=== PATIENT | female | born 1995 | race Caucasian/White ===

== ENCOUNTER → 2017-06-24 | Outpatient (CLI) | payer BC ==
--- NOTE | 2017-06-24 12:19 | Diagnostic Imaging Report ---
INDICATION: Bilateral palpable lumps. Patient reportedly had an outside ultrasound of the right breast demonstrating a fibroadenoma. COMPARISON: No prior imaging is available for comparison. TECHNIQUE: Digital diagnostic mammography was performed bilaterally with a Computer Aided Detection (CAD) system. FINDINGS: Both breasts are radiographically dense, limiting the sensitivity of mammography. There are areas of density at the areas that were marked with BB markers in both breasts. No suspicious calcifications are seen. The axillae are unremarkable. IMPRESSION: Extremely dense breasts limiting sensitivity. Further evaluation of the areas of palpable abnormality in both breasts with ultrasound is recommended. ACR BI-RADS Category 0: Incomplete. (Needs additional imaging evaluation). Result letter will be mailed to the patient. Note: At least 10% of breast cancer is not imaged by mammography. Dictated by: Dictated on workstation # [id number]
--- NOTE | 2017-06-24 12:27 | Diagnostic Imaging Report ---
INDICATION: Bilateral breast nodules. The patient reportedly had an outside right breast ultrasound demonstrating a solid nodule consistent with a fibroadenoma. TECHNIQUE: Sonographic interrogation of the bilateral breasts was performed. FINDINGS: The left breast does demonstrate a well-defined hypoechoic solid nodule at the 10 o'clock location 4 cm from the nipple. This measures 1.4 x 0.8 x 1.6 cm and appears to be macrolobulated showing some posterior acoustic enhancement, most suggestive of a fibroadenoma. There is internal vascularity. On the right, there is a well-defined hypoechoic solid mass at the 5 o'clock location 4 cm from the nipple measuring 2.3 x 0.9 x 1.8 cm. This demonstrates internal vascularity and also is consistent with a fibroadenoma. The outside ultrasound report described this mass with measurements of 2.1 x 1.0 x 1.8 cm. IMPRESSION: Bilateral solid circumscribed masses as described. These are most suggestive of fibroadenomas. A followup bilateral breast ultrasound in 6 months could be performed to confirm stability. Dictated by: Dictated on workstation # [id number]
== END ==
LOC: RAD 08:28
PROVIDERS: ATTEND Obstetrics & Gynecology
DX: N63.14 Unspecified lump in the right breast, lower inner quadrant (principal); N63.22 Unspecified lump in the left breast, upper inner quadrant
CPT/HCPCS: 76642; 77066

== ENCOUNTER 2017-07-03 05:52 | Outpatient (CLI) | payer BC ==
[~2017-07-03] VITALS: Ht 160 cm; Wt 56.7 kg
[2017-07-03] MEDS ORDERED: BCP PO (11:15)
[2017-07-03] MEDS ORDERED: MULT-35 PO (11:15)
== END 2017-07-03 11:50 ==
LOC: PREOP 05:52
PROVIDERS: ATTEND Surgery
DX: Z01.818 Encounter for other preprocedural examination (principal); N63.10 Unspecified lump in the right breast, unspecified quadrant; N63.20 Unspecified lump in the left breast, unspecified quadrant

== ENCOUNTER 2017-07-05 07:25 | Day surgery (SDC) | payer BC ==
[~2017-07-05] VITALS: Ht 160 cm; Wt 56.7 kg
[~2017-07-05 07:25] MED LIST: BCP PO; MULT-35 PO
--- OUTSIDE RECORDS SUMMARY | 2017-07-05 07:30 | XMS REPORT ---
Author Roseanna Wallace Organization [facility] Address [address] [place], [place] [id number] Care Team Providers Care Food Aide Name Role Phone Roseanna Cuevas PCP Unavailable Allergies and Adverse Reactions Name Reaction Notes NO KNOWN DRUG ALLERGIES Plan of Treatment Planned Activity Comments Planned Date Planned Time Plan/Goal X-RAY EXAM TRUNK SPINE STAND 09/01/2012 12:00 AM Medications Active Name Start Date Estimated Completion Date SIG Comments ibuprofen oral tablet 800 mg 11/26/2014 12/26/2014 take 1 tablet by oral route 3 times a day as needed for 30 days Sprintec (28) oral tablet 0.25-35 mg-mcg 11/26/2014 03/18/2015 take 1 tablet by oral route once daily for 28 days Zofran ODT 4 mg oral tablet,disintegrating 12/17/2014 dissolve 1-2 tablets by oral route every 8 hours as needed Name Start Date Expiration Date SIG Comments naproxen Oral tablet,delayed release (DR/EC) 500 mg 08/28/2012 09/27/2012 take 1 tablet by oral route 2 times a day for 30 days valacyclovir oral tablet 1 g 08/27/2013 09/03/2013 take 1 tablet (1,000 mg) by oral route 3 times per day for 7 days Depo-Provera intramuscular suspension 150 mg/mL 09/16/2013 09/20/2013 inject 1 milliliter (150 mg) by intramuscular route every 3 months for 1 day Ultram ER oral tablet extended release 24 hr 100 mg 11/26/2014 11/29/2014 take 1 tablet (100 mg) by oral route once daily for 3 days Discontinued Name Start Date Discontinued Date SIG Comments Bactroban topical ointment 2 % 04/01/2013 04/09/2013 apply a small amount to the affected area by topical route 3 times per day prednisone oral tablet 20 mg 07/03/2013 09/15/2013 take 40mg x2 days then 20mg x3 days. cyclobenzaprine oral tablet 10 mg 07/03/2013 09/15/2013 take 1 tablet by mouth daily at HS triamcinolone acetonide topical cream 0.1 % 08/12/2013 09/15/2013 apply a thin layer to the affected area(s) by topical route 2 times per day acyclovir oral tablet 400 mg 09/21/2013 12/02/2013 take 1 tablet (400 mg) by oral route 2 times per day for 30 days Problem List Description Status Onset Biliary Dyskinesia Active 12/22/2014 Vital Signs Date Time BP-Sys(mm[Hg] BP-Maria De Jesus(mm[Hg]) HR(bpm) RR(rpm) Temp WT HT HC BMI BSA BMI Percentile O2 Sat(%) 12/22/2014 11:50:00 AM 106 mmHg 69 mmHg 78 bpm 16 rpm 97.4 F 118 lbs 62 in 21.58 kg/m2 1.53 m2 0 % 11/26/2014 9:51:00 AM 122 mmHg 72 mmHg 75 bpm 98.6 F 121 lbs 62.5 in 21.7783 kg/m 1.5557 m 0 % 09/21/2014 4:13:00 PM 100 mmHg 65 mmHg 84 bpm 16 rpm 98 F 116 lbs 98 % 02/22/2014 4:42:00 PM 111 mmHg 75 mmHg 95 bpm 97.4 F 118.125 lbs 62.5 in 21.2608 kg/m 1.5371 m 45.7 % 12/02/2013 4:27:00 PM 112 mmHg 67 mmHg 83 bpm 97.8 F 116 lbs 62.5 in 20.88 kg/m2 1.52 m2 41.2 % 09/22/2013 8:31:00 AM 118 mmHg 62 mmHg 101 bpm 18 rpm 97.6 F 113.25 lbs 62.5 in 20.3834 kg/m 1.5051 m 34.9 % 99 % 09/15/2013 4:35:00 PM 107 mmHg 67 mmHg 85 bpm 98 F 115 lbs 62.5 in 20.70 kg/m2 1.52 m2 39.4 % 07/03/2013 10:55:00 AM 115 mmHg 70 mmHg 85 bpm 16 rpm 98.8 F 112.25 lbs 62.5 in 20.2034 kg/m 1.4984 m 33.1 % 99 % 06/29/2013 4:44:00 PM 109 mmHg 70 mmHg 85 bpm 98.6 F 111.25 lbs 62.5 in 20.02 kg/m2 1.49 m2 30.7 % 04/09/2013 2:49:00 PM 104 mmHg 70 mmHg 82 bpm 97.4 F 108.5 lbs 62.5 in 19.5285 kg/m 1.4732 m 24.6 % 04/01/2013 3:14:00 PM 118 mmHg 68 mmHg 84 bpm 18 rpm 98.4 F 108.25 lbs 62.5 in 19.48 kg/m2 1.47 m2 24.1 % 99 % 01/22/2013 2:45:00 PM 123 mmHg 87 mmHg 91 bpm 98.3 F 99.5 lbs 62.5 in 17.9086 kg/m 1.4108 m 6.5 % 10/27/2012 3:00:00 PM 110 mmHg 65 mmHg 76 bpm 98.6 F 96.375 lbs 62.5 in 17.35 kg/m2 1.39 m2 2.2 % 08/18/2012 11:29:00 AM 122 mmHg 62 mmHg 64 bpm 18 rpm 97.3 F 98.375 lbs 62.5 in 17.7061 kg/m 1.4028 m 5.8 % 08/12/2012 9:36:00 AM 116 mmHg 60 mmHg 62 bpm 18 rpm 97.5 F 97.375 lbs 62.5 in 17.53 kg/m2 1.40 m2 4.3 % 08/11/2012 9:12:00 AM 108 mmHg 68 mmHg 83 bpm 98.2 F 94 lbs 62.5 in 16.9187 kg/m 1.3712 m -1.3 % 08/06/2012 9:13:00 AM 109 mmHg 70 mmHg 83 bpm 98 F 100.25 lbs 62.5 in 18.04 kg/m2 1.42 m2 9.1 % Social History Name Description Comments Tobacco Never smoker Alcohol Never History of Procedures Date Ordered Description Order Status 08/11/2012 12:00 AM THER/PROPH/DIAG INJ SC/IM Reviewed 08/11/2012 12:00 AM Depo-Provera 1mg Reviewed 08/11/2012 12:00 AM URINE TEST Reviewed 08/12/2012 12:00 AM X-RAY EXAM RIBS UNI 2 VIEWS Returned 08/28/2012 12:00 AM X-RAY EXAM THORAC SPINE 2VWS Returned 08/28/2012 12:00 AM X-RAY EXAM L-S SPINE BENDING Returned 09/01/2012 12:00 AM X-RAY EXAM TRUNK SPINE STAND Ordered 10/27/2012 12:00 AM THER/PROPH/DIAG INJ SC/IM Reviewed 10/27/2012 12:00 AM Depo-Provera 150mg (brought in by patient) Reviewed 01/22/2013 12:00 AM THER/PROPH/DIAG INJ SC/IM Reviewed 01/22/2013 12:00 AM Depo-Provera 150mg (brought in by patient) Reviewed 04/09/2013 12:00 AM THER/PROPH/DIAG INJ SC/IM Reviewed 04/09/2013 12:00 AM Depo-Provera 150mg (brought in by patient) Reviewed 06/29/2013 12:00 AM THER/PROPH/DIAG INJ SC/IM Reviewed 06/29/2013 12:00 AM Injection, medroxyprogesterone acetate, 150 mg (brought in by patient) Reviewed 09/15/2013 5:02 PM THER/PROPH/DIAG INJ SC/IM Reviewed 09/15/2013 5:02 PM Depo-Provera 150 Mg Reviewed 09/15/2013 12:00 AM CHLAMYDIA CULTURE Returned 09/15/2013 12:00 AM N.GONORRHOEAE DNA AMP PROB Returned 09/15/2013 12:00 AM HTLV/HIV CONFIRMJ ANTIBODY Returned 09/15/2013 12:00 AM ACUTE HEPATITIS PANEL Returned 09/15/2013 12:00 AM HERPES SIMPLEX TYPE 1 TEST Returned 09/15/2013 12:00 AM RPR w Reflex to TP Returned 09/22/2013 12:00 AM THER/PROPH/DIAG INJ SC/IM Reviewed 09/22/2013 12:00 AM Decadron, Per 1 Mg [facility]# [address]-45 Reviewed 09/22/2013 12:00 AM Depo-Medrol, Per 80 Mg [facility]#0930-6031-25 Reviewed 12/02/2013 12:00 AM THER/PROPH/DIAG INJ SC/IM Reviewed 12/02/2013 12:00 AM Depo Provera Injection, 150 mg Reviewed 02/22/2014 12:00 AM THER/PROPH/DIAG INJ SC/IM Reviewed 02/22/2014 12:00 AM Depo Provera Injection, 150 mg Reviewed 09/21/2014 12:00 AM COMPLETE CBC W/AUTO DIFF WBC Returned 09/21/2014 12:00 AM COMPREHEN METABOLIC PANEL Returned 09/21/2014 12:00 AM ASSAY OF AMYLASE Returned 09/21/2014 12:00 AM ASSAY OF LIPASE Returned 09/21/2014 12:00 AM CHORIONIC GONADOTROPIN ASSAY Returned 09/21/2014 12:00 AM ASSAY OF GONADOTROPIN (FSH) Returned 09/21/2014 12:00 AM ASSAY OF ESTROGEN Returned 09/29/2014 12:00 AM US EXAM PELVIC COMPLETE Returned 11/26/2014 10:50 AM URINE TEST Reviewed 12/16/2014 12:00 AM COMPLETE CBC W/AUTO DIFF WBC Returned 12/16/2014 12:00 AM COMPREHEN METABOLIC PANEL Returned 12/16/2014 12:00 AM ASSAY OF AMYLASE Returned 12/16/2014 12:00 AM ASSAY OF LIPASE Returned 12/16/2014 12:00 AM ECHO EXAM OF ABDOMEN Returned 12/22/2014 12:00 AM LAPAROSCOPIC CHOLECYSTECTOMY Reviewed Results Summary Data and Description Results 09/15/2013 5:40 PM HIV AG/AB COMBO 0.12 RPR Non Reactive Hep A Ab, IgM Negative HBsAg Screen Negative Hep B Core Ab, IgM Negative Hep C Virus Ab <0.1 HSV 1 IgG, Type Spec <0.91 indexHSV 2 IgG, Type Spec >23.60 index 09/21/2014 4:57 PM FSH 5.20 mIU/mLLIPASE 23.0 U/LWBC 7.3 RBC 4.77 HGB 12.70 g/ dLHCT 38.60 %MCV 81.0 fLMCH 26.60 pgMCHC 32.90 g/dLRDW CV 13.10 %MPV 9.0 fLPLT 235 %NEUT 53.40 %%LYMP 35.20 %%MONO 9.80 %%EOS 1.10 %%BASO 0.50 %#NEUT 3.91 # LYMP 2.58 #MONO 0.72 #EOS 0.08 #BASO 0.04 AMYLASE 45 IU/LGLUCOSE 89.0 mg/ dLSODIUM 141.0 mmol/LPOTASSIUM 3.80 mmol/LCHLORIDE 108.0 mmol/LCO2 23.0 mmol/ LBUN 13.0 mg/dLCREATININE 0.90 mg/dLSGOT/AST 26.0 IU/LSGPT/ALT 39.0 IU/LALK PHOS 69.0 IU/LTOTAL PROTEIN 7.80 g/dLALBUMIN 4.60 g/dLTOTAL BILI 0.40 mg/ dLCALCIUM 9.80 mg/dLeGFR >60 mL/min/1.73 [id number], Total 160.0 pg/mL 11/26/2014 10:50 AM Test, Urine negative 12/16/2014 11:35 AM WBC 7.1 RBC 4.68 HGB 12.50 g/dLHCT 38.30 %MCV 82.0 fLMCH 26.70 pgMCHC 32.60 g/dLRDW CV 13.30 %MPV 9.10 fLPLT 243 %NEUT 63.80 %%LYMP 26.0 %%MONO 9.20 %%EOS 0.60 %%BASO 0.40 %#NEUT 4.50 #LYMP 1.83 #MONO 0.65 #EOS 0.04 # BASO 0.03 LIPASE 21.0 U/LAMYLASE 54 IU/LGLUCOSE 100.0 mg/dLSODIUM 140.0 mmol/ LPOTASSIUM 3.90 mmol/LCHLORIDE 107.0 mmol/LCO2 23.0 mmol/LBUN 10.0 mg/ dLCREATININE 0.70 mg/dLSGOT/AST 15.0 IU/LSGPT/ALT 12.0 IU/LALK PHOS 55.0 IU/ LTOTAL PROTEIN 7.50 g/dLALBUMIN 4.30 g/dLTOTAL BILI 0.30 mg/dLCALCIUM 9.50 mg/ dLeGFR >60 mL/min/1.73m History Of Immunizations Not available. History of Past Illness Name Date of Onset Comments *No known medical problems Biliary Dyskinesia 12/22/2014 Contraceptive Management Aug 06 2012 9:15AM Contraceptive counseling (Depo-Provera) Aug 11 2012 9:27AM Right rib pain/upper anterior chest Aug 12 2012 9:39AM Right rib pain Aug 18 2012 11:31AM Right rib pain Aug 28 2012 1:06PM Scoliosis R/O Sep 01 2012 4:27PM Contraceptive counseling (Depo-Provera) Oct 27 2012 3:03PM Contraceptive counseling (Depo-Provera) Jan 22 2013 3:03PM Rash Of Skin Apr 01 2013 3:16PM Contraceptive counseling (Depo-Provera) Apr 09 2013 2:54PM Contraceptive counseling (Depo-Provera) Jun 29 2013 4:51PM Sprain/Strain Jul 03 2013 11:00AM Routine gynecological examination Sep 15 2013 4:40PM Contraceptive counseling (Depo-Provera) Sep 15 2013 5:02PM Contraception, Surveillance Sep 15 2013 4:40PM HIV Counseling Sep 15 2013 4:40PM Venomous animals and plants as the cause of poisoning and toxic reactions; hornets, wasps, and bees Sep 22 2013 8:33AM Cellulitis Sep 22 2013 8:33AM Contraceptive counseling (Depo-Provera) Dec 02 2013 4:34PM Contraceptive counseling (Depo-Provera) Feb 22 2014 4:56PM Abdominal cramping Sep 21 2014 4:14PM Amenorrhea Sep 21 2014 4:14PM Pelvic pain in female Sep 21 2014 4:14PM Pelvic pain in female Sep 29 2014 4:24PM Pelvic Pain Nov 26 2014 9:55AM Dysmenorrhea Nov 26 2014 9:55AM Ovarian Cyst Nov 26 2014 9:55AM Abdominal pain Dec 16 2014 10:46AM Vomiting Dec 16 2014 10:46AM Biliary Dyskinesia Dec 22 2014 12:36PM Payers Insurance Name Company Name Plan Name Plan Number Policy Number Policy Group Number Start Date [employer] [place] [id number] N/A [employer] [facility] [id number] Sunday, 2012 History of Encounters Visit Date Visit Type Provider 12/22/2014 Office visit João Ferreira DO 11/26/2014 Office visit Libby Jo DERMATOLOGY TECHNICIAN 09/21/2014 Office visit Jayesh Kurtz DERMATOLOGY TECHNICIAN 02/22/2014 Nurse visit Brooklynn Vegas MD 12/02/2013 Nurse visit Brooklynn Vegas MD 09/22/2013 Office visit Roseanna Cuevas DERMATOLOGY TECHNICIAN 09/15/2013 Office visit Libby Jo DERMATOLOGY TECHNICIAN 07/03/2013 Office visit Roseanna Cuevas DERMATOLOGY TECHNICIAN 06/29/2013 Nurse visit Brooklynn Vegas MD 04/09/2013 Nurse visit Brooklynn Vegas MD 04/01/2013 Office visit Roseanna Cuevas DERMATOLOGY TECHNICIAN 01/22/2013 Nurse visit Brooklynn Vegas MD 10/27/2012 Nurse visit Brooklynn Vegas MD 08/18/2012 Office visit Roseanna Cuevas APRN 08/12/2012 Office visit Roseanna Cuevas APRN 08/11/2012 Nurse visit Brooklynn Vegas MD 08/06/2012 Office visit Brooklynn Vegas MD
--- OUTSIDE RECORDS SUMMARY | 2017-07-05 07:31 | XMS REPORT ---
Author Author Libby Jo [facility] Address [address] [place], [place] [id number] Care Team Providers Care Landscape Architect And Planner Name Role Phone Libby Jo PCP Roseanna Cuevas PreferredProvider Allergies and Adverse Reactions Name Reaction Notes NO KNOWN DRUG ALLERGIES Plan of Treatment Planned Activity Comments Planned Date Planned Time Plan/Goal CBC With Auto Differential 05/28/2017 12:00 AM TSH 05/28/2017 12:00 AM Pap smear auto thin prep w manual MD screen 05/28/2017 12:00 AM FERRITIN 05/28/2017 12:00 AM T4 FREE 05/28/2017 12:00 AM Thoracolumbar radiographs (standing, for scoliosis) 09/01/2012 12:00 AM Medications Active Name Start Date Estimated Completion Date SIG Comments Zofran ODT 4 mg oral tablet,disintegrating 12/12/2016 dissolve 1 tablet by oral route 2 times a day Sprintec (28) 0.25-35 mg-mcg oral tablet 05/28/2017 take 1 tablet by oral route once daily for 84 days Name Start Date Expiration Date SIG Comments naproxen 500 mg oral tablet,delayed release (DR/EC) 08/28/2012 09/27/2012 take 1 tablet by oral route 2 times a day for 30 days valacyclovir 1 gram oral tablet 08/27/2013 09/03/2013 take 1 tablet (1,000 mg) by oral route 3 times per day for 7 days Depo-Provera 150 mg/mL intramuscular suspension 09/16/2013 09/20/2013 inject 1 milliliter (150 mg) by intramuscular route every 3 months for 1 day Ultram ER 100 mg oral tablet extended release 24 hr 11/26/2014 11/29/2014 take 1 tablet (100 mg) by oral route once daily for 3 days ibuprofen 800 mg oral tablet 11/26/2014 12/26/2014 take 1 tablet by oral route 3 times a day as needed for 30 days Sprintec (28) 0.25-35 mg-mcg oral tablet 11/26/2014 03/18/2015 take 1 tablet by oral route once daily for 28 days Zofran ODT 4 mg oral tablet,disintegrating 12/17/2014 dissolve 1-2 tablets by oral route every 8 hours as needed Depo-Provera 150 mg/mL intramuscular suspension 05/25/2015 05/29/2015 inject 150 mg by intramuscular route every 3 months for 1 day Discontinued Name Start Date Discontinued Date SIG Comments Bactroban 2 % topical ointment 04/01/2013 04/09/2013 apply a small amount to the affected area by topical route 3 times per day prednisone 20 mg oral tablet 07/03/2013 09/15/2013 take 40mg x2 days then 20mg x3 days. cyclobenzaprine 10 mg oral tablet 07/03/2013 09/15/2013 take 1 tablet by mouth daily at HS triamcinolone acetonide 0.1 % topical cream 08/12/2013 09/15/2013 apply a thin layer to the affected area(s) by topical route 2 times per day acyclovir 400 mg oral tablet 09/21/2013 12/02/2013 take 1 tablet (400 mg) by oral route 2 times per day for 30 days Problem List Description Status Onset Biliary Dyskinesia Active 12/22/2014 Vital Signs Date Time BP-Sys(mm[Hg] BP-Maria De Jesus(mm[Hg]) HR(bpm) RR(rpm) Temp WT HT HC BMI BSA BMI Percentile O2 Sat(%) 05/28/2017 4:07:00 PM 122 mmHg 76 mmHg 94 bpm 18 rpm 122.375 lbs 62 in 22.38 kg/m2 1.56 m2 05/21/2016 11:03:00 AM 105 mmHg 66 mmHg 85 bpm 98.3 F 122 lbs 62 in 22.3139 kg/m 1.5559 m 08/22/2015 4:37:00 PM 108 mmHg 63 mmHg 84 bpm 98.8 F 116 lbs 62 in 21.22 kg/m2 1.52 m2 06/02/2015 11:20:00 AM 100 mmHg 59 mmHg 74 bpm 98 F 111 lbs 62 in 20.302 kg/m 1.4841 m 05/25/2015 3:16:00 PM 112 mmHg 63 mmHg 81 bpm 98.4 F 113 lbs 62 in 20.67 kg/m2 1.50 m2 01/04/2015 11:44:00 AM 101 mmHg 64 mmHg 72 bpm 16 rpm 97.2 F 116 lbs 62 in 21.2165 kg/m 1.5171 m 0 % 12/22/2014 11:50:00 AM 106 mmHg 69 mmHg [...] of Procedures Date Ordered Description Order Status 06/02/2015 11:40 AM URINE TEST Reviewed 06/02/2015 12:00 AM THER/PROPH/DIAG INJ SC/IM Reviewed 08/22/2015 12:00 AM THER/PROPH/DIAG INJ SC/IM Reviewed 08/22/2015 12:00 AM Depo Provera Injection, 150 mg, brought in by patient Reviewed 05/21/2016 12:00 AM SPECIMEN HANDLING OFFICE-LAB Reviewed 05/21/2016 12:00 AM COMPLETE CBC W/AUTO DIFF WBC Reviewed 05/21/2016 12:00 AM ASSAY THYROID STIM HORMONE Reviewed 05/21/2016 12:00 AM CYTOPATH C/V THIN LAYER Reviewed 08/11/2012 12:00 AM THER/PROPH/DIAG INJ SC/IM Reviewed 08/11/2012 12:00 AM Depo-Provera 1mg Reviewed 08/11/2012 12:00 AM URINE TEST Reviewed 08/12/2012 12:00 AM X-RAY EXAM RIBS UNI 2 VIEWS Reviewed 08/28/2012 12:00 AM X-RAY EXAM THORAC SPINE 2VWS Reviewed 08/28/2012 12:00 AM X-RAY EXAM L-S SPINE BENDING Reviewed 10/27/2012 12:00 AM THER/PROPH/DIAG INJ SC/IM Reviewed [...] Mg Reviewed 09/15/2013 12:00 AM CHLAMYDIA CULTURE Reviewed 09/15/2013 12:00 AM N.GONORRHOEAE DNA AMP PROB Reviewed 09/15/2013 12:00 AM HTLV/HIV CONFIRMJ ANTIBODY Reviewed 09/15/2013 12:00 AM ACUTE HEPATITIS PANEL Reviewed 09/15/2013 12:00 AM HERPES SIMPLEX TYPE 1 TEST Reviewed 09/15/2013 12:00 AM RPR w Reflex to TP Reviewed 09/22/2013 12:00 AM THER/PROPH/DIAG INJ SC/IM Reviewed 09/22/2013 12:00 AM Decadron, Per 1 Mg [facility]# [address]-77 Reviewed 09/22/2013 12:00 AM Depo-Medrol, Per 80 Mg [facility]#1959-6842-18 Reviewed 12/02/2013 12:00 AM THER/PROPH/DIAG INJ SC/IM Reviewed 12/02/2013 12:00 AM Depo Provera Injection, 150 mg Reviewed 02/22/2014 12:00 AM THER/PROPH/DIAG INJ SC/IM Reviewed 02/22/2014 12:00 AM Depo Provera Injection, 150 mg Reviewed 09/21/2014 12:00 AM COMPLETE CBC W/AUTO DIFF WBC Reviewed 09/21/2014 12:00 AM COMPREHEN METABOLIC PANEL Reviewed 09/21/2014 12:00 AM ASSAY OF AMYLASE Reviewed 09/21/2014 12:00 AM ASSAY OF LIPASE Reviewed 09/21/2014 12:00 AM CHORIONIC GONADOTROPIN ASSAY Reviewed 09/21/2014 12:00 AM ASSAY OF GONADOTROPIN (FSH) Reviewed 09/21/2014 12:00 AM ASSAY OF ESTROGEN Reviewed 09/29/2014 12:00 AM US EXAM PELVIC COMPLETE Reviewed 11/26/2014 10:50 AM URINE TEST Reviewed 12/16/2014 12:00 AM COMPLETE CBC W/AUTO DIFF WBC Reviewed 12/16/2014 12:00 AM COMPREHEN METABOLIC PANEL Reviewed 12/16/2014 12:00 AM ASSAY OF AMYLASE Reviewed 12/16/2014 12:00 AM ASSAY OF LIPASE Reviewed 12/16/2014 12:00 AM ECHO EXAM OF ABDOMEN Reviewed 12/22/2014 12:00 AM LAPAROSCOPIC CHOLECYSTECTOMY Reviewed Results Summary Date and Description Results 09/15/2013 5:40 PM HIV AG/AB COMBO 0.12 RPR Non Reactive Hep A Ab, IgM Negative HBsAg Screen Negative Hep B Core Ab, IgM Negative Hep C Virus Ab <0.1 HSV 1 IgG, Type Spec <0.91 indexHSV 2 IgG, Type Spec >23.60 index 09/21/2014 4:57 PM FSH 5.20 mIU/mLPREGNANCY TEST NEGATIVE LIPASE 23.0 U/LWBC 7.3 RBC 4.77 HGB 12.70 g/dLHCT 38.60 %MCV 81.0 fLMCH 26.60 pgMCHC 32.90 g/dLRDW SD 39 RDW CV 13.10 %MPV 9.0 fLPLT 235 NRBC# 0.00 NRBC% 0.0 %NEUT 53.40 %%LYMP 35.20 %%MONO 9.80 %%EOS 1.10 %%BASO 0.50 %#NEUT 3.91 #LYMP 2.58 #MONO 0.72 #EOS 0.08 #BASO 0.04 MANUAL DIFF NOT IND AMYLASE 45 IU/LGLUCOSE 89.0 mg/dLSODIUM 141.0 mmol/LPOTASSIUM 3.80 mmol/LCHLORIDE 108.0 mmol/LCO2 23.0 mmol/LBUN 13.0 mg /dLCREATININE 0.90 mg/dLSGOT/AST 26.0 IU/LSGPT/ALT 39.0 IU/LALK PHOS 69.0 IU/ LTOTAL PROTEIN 7.80 g/dLALBUMIN 4.60 g/dLTOTAL BILI 0.40 mg/dLCALCIUM 9.80 mg/ dLAGE 19 GFR NonAA 81 GFR AA 98 eGFR >60 mL/min/1.73 m2eGFR AA* >60 Estrogens, Total 160.0 pg/mL 11/26/2014 10:50 AM Test, Urine negative 12/16/2014 11:35 AM WBC 7.1 RBC 4.68 HGB 12.50 g/dLHCT 38.30 %MCV 82.0 fLMCH 26.70 pgMCHC 32.60 g/dLRDW SD 40 RDW CV 13.30 %MPV 9.10 fLPLT 243 NRBC# 0.00 NRBC% 0.0 %NEUT 63.80 %%LYMP 26.0 %%MONO 9.20 %%EOS 0.60 %%BASO 0.40 %#NEUT 4.50 #LYMP 1.83 #MONO 0.65 #EOS 0.04 #BASO 0.03 MANUAL DIFF NOT IND LIPASE 21.0 U/LAMYLASE 54 IU/LGLUCOSE 100.0 mg/dLSODIUM 140.0 mmol/LPOTASSIUM 3.90 mmol/ LCHLORIDE 107.0 mmol/LCO2 23.0 mmol/LBUN 10.0 mg/dLCREATININE 0.70 mg/dLSGOT/ AST 15.0 IU/LSGPT/ALT 12.0 IU/LALK PHOS 55.0 IU/LTOTAL PROTEIN 7.50 g/dLALBUMIN 4.30 g/dLTOTAL BILI 0.30 mg/dLCALCIUM 9.50 mg/dLAGE 20 GFR NonAA 107 GFR AA 130 eGFR >60 mL/min/1.73meGFR AA* >60 06/02/2015 11:40 AM Test, Urine negative 05/21/2016 11:45 AM WBC 5.5 RBC 4.64 HGB 12.20 g/dLHCT 37.30 %MCV 80.0 fLMCH 26.30 pgMCHC 32.70 g/dLRDW SD 37 RDW CV 13.0 %MPV 9.10 fLPLT 260 NRBC# 0.00 NRBC % 0.0 %NEUT 59.20 %%LYMP 29.30 %%MONO 9.30 %%EOS 1.10 %%BASO 0.70 %#NEUT 3.23 # LYMP 1.60 #MONO 0.51 #EOS 0.06 #BASO 0.04 MANUAL DIFF NOT IND TSH 0.860 uIU/mL History Of Immunizations Not available. History of [...] 10:46AM Biliary Dyskinesia Dec 22 2014 12:36PM Contraceptive counseling (Depo-Provera) May 25 2015 3:18PM Contraceptive counseling (Depo-Provera) Jun 02 2015 11:40AM Contraceptive counseling (Depo-Provera) Aug 22 2015 4:42PM Routine gynecological examination May 21 2016 11:06AM Contraceptive management May 21 2016 11:06AM Fatigue May 21 2016 11:06AM Routine gynecological examination May 28 2017 4:09PM Contraceptive surveillance May 28 2017 4:09PM Fatigue May 28 2017 4:09PM Payers Insurance Name Company Name Plan Name Plan Number Policy Number Policy Group Number Start Date [employer] [place] [id number] N/A [employer] [place] [id number] Sunday, 2012 History of Encounters Visit Date Visit Type Provider 05/28/2017 Office visit Libby Jo PIGGYBACK CLERK 05/21/2016 Office visit Libby Jo PIGGYBACK CLERK 08/22/2015 Nurse visit Libby Jo PIGGYBACK CLERK 06/02/2015 Nurse visit Libby Jo PIGGYBACK CLERK 05/25/2015 Office visit Libby Jo PIGGYBACK CLERK 01/04/2015 Surgery [facility] DO 12/23/2014 Hospital [facility] DO 12/22/2014 Office visit João Ferreira DO 11/26/2014 Office visit Libby Jo PIGGYBACK CLERK 09/21/2014 Office visit Jayesh Kurtz PIGGYBACK CLERK 02/22/2014 Nurse visit Brooklynn Vegas MD 12/02/2013 Nurse visit Brooklynn Vegas MD 09/22/2013 Office visit Roseanna Cuevas PIGGYBACK CLERK 09/15/2013 Office visit Libby Jo PIGGYBACK CLERK 07/03/2013 Office visit Roseanna Cuevas PIGGYBACK CLERK 06/29/2013 Nurse visit Brooklynn Vegas MD 04/09/2013 Nurse visit Brooklynn Vegas MD 04/01/2013 Office visit Roseanna Cuevas PIGGYBACK CLERK 01/22/2013 Nurse visit Brooklynn Vegas MD 10/27/2012 Nurse visit Brooklynn Vegas MD 08/18/2012 Office visit Roseanna Cuevas PIGGYBACK CLERK 08/12/2012 Office visit Roseanna Cuevas PIGGYBACK CLERK 08/11/2012 Nurse visit Brooklynn Vegas MD 08/06/2012 Office visit Brooklynn Vegas MD
--- OUTSIDE RECORDS SUMMARY | 2017-07-05 07:31 | XMS REPORT ---
Author Libby Rosales [facility] Address [address] [place], [place] [id number] Care Team Providers Care Stores Laborer Name Role Phone Libby Jo PCP Unavailable Roseanna Cuevas PreferredProvider Unavailable Allergies and Adverse Reactions Name Reaction Notes NO KNOWN DRUG ALLERGIES Plan of Treatment Planned Activity Comments Planned Date Planned Time Plan/Goal CBC With Auto Differential 05/21/2016 12:00 AM TSH 05/21/2016 12:00 AM Pap smear auto thin prep w manual MD screen 05/21/2016 12:00 AM Thoracolumbar radiographs (standing, for scoliosis) 09/01/2012 12:00 AM Medications Active Name Start Date Estimated Completion Date SIG Comments Sprintec (28) 0.25-35 mg-mcg oral tablet 05/21/2016 04/22/2017 take 1 tablet by oral route once [...] days Problem List Description Status Onset Biliary dyskinesia Active 12/22/2014 Vital Signs Date Time BP-Sys(mm[Hg] BP-Maria De Jesus(mm[Hg]) HR(bpm) RR(rpm) Temp WT HT HC BMI BSA BMI Percentile O2 Sat(%) 05/21/2016 11:03:00 AM 105 mmHg 66 mmHg 85 bpm 98.3 F 122 lbs 62 in 22.31 kg/m2 1.56 m2 08/22/2015 4:37:00 PM 108 mmHg 63 mmHg 84 bpm 98.8 F 116 lbs 62 in 21.2165 kg/m 1.5171 m 06/02/2015 11:20:00 AM 100 mmHg 59 mmHg 74 bpm 98 F 111 lbs 62 in 20.30 kg/m2 1.48 m2 05/25/2015 3:16:00 PM 112 mmHg 63 mmHg 81 bpm 98.4 F 113 lbs 62 in 20.6678 kg/m 1.4974 m 01/04/2015 11:44:00 AM 101 mmHg 64 mmHg 72 bpm 16 rpm 97.2 F 116 lbs 62 in 21.22 kg/m2 1.52 m2 0 % 12/22/2014 11:50:00 AM 106 mmHg 69 mmHg 78 bpm 16 rpm 97.4 F 118 lbs 62 in 21.5823 kg/m 1.5302 m 0 % 11/26/2014 9:51:00 AM 122 mmHg 72 mmHg 75 bpm 98.6 F 121 lbs 62.5 in 21.78 kg/m2 1.56 m2 0 % 09/21/2014 4:13:00 PM 100 mmHg 65 mmHg 84 bpm 16 rpm 98 F 116 lbs 98 % 02/22/2014 4:42:00 PM 111 mmHg 75 mmHg 95 bpm 97.4 F 118.125 lbs 62.5 in 21.26 kg/m2 1.54 m2 45.7 % 12/02/2013 4:27:00 PM 112 mmHg 67 mmHg 83 bpm 97.8 F 116 lbs 62.5 in 20.8784 kg/m 1.5232 m 41.2 % 09/22/2013 8:31:00 AM 118 mmHg 62 mmHg 101 bpm 18 rpm 97.6 F 113.25 lbs 62.5 in 20.38 kg/m2 1.51 m2 34.9 % 99 % 09/15/2013 4:35:00 PM 107 mmHg 67 mmHg 85 bpm 98 F 115 lbs 62.5 in 20.6984 kg/m 1.5167 m 39.4 % 07/03/2013 10:55:00 AM 115 mmHg 70 mmHg 85 bpm 16 rpm 98.8 F 112.25 lbs 62.5 in 20.20 kg/m2 1.50 m2 33.1 % 99 % 06/29/2013 4:44:00 PM 109 mmHg 70 mmHg 85 bpm 98.6 F 111.25 lbs 62.5 in 20.0234 kg/m 1.4917 m 30.7 % 04/09/2013 2:49:00 PM 104 mmHg 70 mmHg 82 bpm 97.4 F 108.5 lbs 62.5 in 19.53 kg/m2 1.47 m2 24.6 % 04/01/2013 3:14:00 PM 118 mmHg 68 mmHg 84 bpm 18 rpm 98.4 F 108.25 lbs 62.5 in 19.4835 kg/m 1.4715 m 24.1 % 99 % 01/22/2013 2:45:00 PM 123 mmHg 87 mmHg 91 bpm 98.3 F 99.5 lbs 62.5 in 17.91 kg/m2 1.41 m2 6.5 % 10/27/2012 3:00:00 PM 110 mmHg 65 mmHg 76 bpm 98.6 F 96.375 lbs 62.5 in 17.3461 kg/m 1.3884 m 2.2 % 08/18/2012 11:29:00 AM 122 mmHg 62 mmHg 64 bpm 18 rpm 97.3 F 98.375 lbs 62.5 in 17.71 kg/m2 1.40 m2 5.8 % 08/12/2012 9:36:00 AM 116 mmHg 60 mmHg 62 bpm 18 rpm 97.5 F 97.375 lbs 62.5 in 17.5261 kg/m 1.3956 m 4.3 % 08/11/2012 9:12:00 AM 108 mmHg 68 mmHg 83 bpm 98.2 F 94 lbs 62.5 in 16.92 kg/m2 1.37 m2 -1.3 % 08/06/2012 9:13:00 AM 109 mmHg 70 mmHg 83 bpm 98 F 100.25 lbs 62.5 in 18.0436 kg/m 1.4161 m 9.1 % Social History Name Description Comments Tobacco Never smoker Alcohol Never History of Procedures Date Ordered Description Order Status 06/02/2015 11:40 AM URINE TEST Reviewed 06/02/2015 12:00 AM THER/PROPH/DIAG INJ SC/IM Reviewed 08/22/2015 12:00 AM THER/PROPH/DIAG INJ SC/IM Reviewed 08/22/2015 12:00 AM Depo Provera Injection, 150 mg, brought in by patient Reviewed 08/11/2012 12:00 AM THER/PROPH/DIAG INJ SC/IM [...] 09/22/2013 12:00 AM Decadron, Per 1 Mg [facility]# [address]-96 Reviewed 09/22/2013 12:00 AM Depo-Medrol, Per 80 Mg [facility]#0748-0005-69 Reviewed 12/02/2013 12:00 AM THER/PROPH/DIAG INJ SC/IM [...] AA 130 eGFR >60 mL/min/1.73meGFR AA* >60 12/23/2014 10:20 AM TEST NEGATIVE 06/02/2015 11:40 AM Test, Urine negative 05/21/2016 11:34 AM Pap Smear Collected History Of Immunizations Not available. History of Past Illness Name Date of Onset Comments *No known medical problems Biliary dyskinesia 12/22/2014 Contraceptive Management Aug 06 2012 9:15AM [...] 2016 11:06AM Fatigue May 21 2016 11:06AM Payers Insurance Name Company Name Plan Name Plan Number Policy Number Policy Group Number Start Date BCBS [facility]bs [facility] [id number] N[id number] Sunday, 2012 History of Encounters Visit Date Visit Type Provider 05/21/2016 Office visit Libby Jo PRINTING EQUIPMENT MECHANIC APPRENTICE 08/22/2015 Nurse visit Libby Jo PRINTING EQUIPMENT MECHANIC APPRENTICE 06/02/2015 Nurse visit Libby Jo PRINTING EQUIPMENT MECHANIC APPRENTICE 05/25/2015 Office visit Libby Jo PRINTING EQUIPMENT MECHANIC APPRENTICE 01/04/2015 Surgery João Ferreira DO 12/23/2014 Hospital João Ferreira DO 12/22/2014 Office visit João Ferreira DO 11/26/2014 Office visit Libby Jo PRINTING EQUIPMENT MECHANIC APPRENTICE 09/21/2014 Office visit Jayesh Kurtz PRINTING EQUIPMENT MECHANIC APPRENTICE 02/22/2014 Nurse visit Brooklynn Vegas MD 12/02/2013 Nurse visit Brooklynn Vegas MD 09/22/2013 Office visit Roseanna Cuevas PRINTING EQUIPMENT MECHANIC APPRENTICE 09/15/2013 Office visit Libby Jo PRINTING EQUIPMENT MECHANIC APPRENTICE 07/03/2013 Office visit Roseanna Cuevas PRINTING EQUIPMENT MECHANIC APPRENTICE 06/29/2013 Nurse visit Brooklynn Vegas MD 04/09/2013 Nurse visit Brooklynn Vegas MD 04/01/2013 Office visit Roseanna Cuevas PRINTING EQUIPMENT MECHANIC APPRENTICE 01/22/2013 Nurse visit Brooklynn Vegas MD 10/27/2012 Nurse visit Brooklynn Vegas MD 08/18/2012 Office visit Roseanna Cuevas PRINTING EQUIPMENT MECHANIC APPRENTICE 08/12/2012 Office visit Roseanna Cuevas PRINTING EQUIPMENT MECHANIC APPRENTICE 08/11/2012 Nurse visit Brooklynn Vegas MD 08/06/2012 Office visit Brooklynn Vegas MD
--- OUTSIDE RECORDS SUMMARY | 2017-07-05 07:32 | XMS REPORT ---
Author Author João Ferreira [facility] Address [address] [place], [place] [id number] Care Team Providers Care Mechanical Ordnance Assembler Name Role Phone João Ferreira PCP Unavailable Allergies and Adverse Reactions Name Reaction Notes NO KNOWN DRUG ALLERGIES Plan of Treatment Planned Activity Comments Planned Date Planned Time Plan/Goal X-RAY EXAM TRUNK SPINE STAND 09/01/2012 12:00 AM Medications Active Name Start Date Estimated Completion Date SIG Comments Sprintec (28) 0.25-35 mg-mcg oral tablet 11/26/2014 03/18/2015 take 1 tablet by oral route once daily for 28 days Name Start Date Expiration Date SIG [...] a day as needed for 30 days Zofran ODT 4 mg oral tablet,disintegrating 12/17/2014 dissolve 1-2 tablets by oral route every 8 hours as needed Discontinued Name Start Date Discontinued Date SIG [...] HC BMI BSA BMI Percentile O2 Sat(%) 01/04/2015 11:44:00 AM 101 mmHg 64 mmHg [...] AM X-RAY EXAM L-S SPINE BENDING Returned 10/27/2012 12:00 AM THER/PROPH/DIAG INJ SC/IM Reviewed [...] 09/22/2013 12:00 AM Decadron, Per 1 Mg [facility]# [address]-51 Reviewed 09/22/2013 12:00 AM Depo-Medrol, Per 80 Mg [facility]#9878-8350-42 Reviewed 12/02/2013 12:00 AM THER/PROPH/DIAG INJ SC/IM [...] 0.40 mg/ dLCALCIUM 9.80 mg/dLeGFR >60 mL/min/1.73 [id number], Total 160.0 pg/mL 11/26/2014 10:50 AM Test, [...] Policy Number Policy Group Number Start Date [id number] [id number] Sunday, 2012 History of Encounters Visit Date Visit Type Provider 01/04/2015 Surgery João Ferreira DO 12/23/2014 Hospital João Ferreira DO 12/22/2014 Office visit João Ferreira DO 11/26/2014 Office visit Libby Jo DUST COLLECTOR ORE CRUSHING 09/21/2014 Office visit Jayesh Kurtz DUST COLLECTOR ORE CRUSHING 02/22/2014 Nurse visit Brooklynn Vegas MD 12/02/2013 Nurse visit Brooklynn Vegas MD 09/22/2013 Office visit Roseanna Cuevas DUST COLLECTOR ORE CRUSHING 09/15/2013 Office visit Libby Jo DUST COLLECTOR ORE CRUSHING 07/03/2013 Office visit Roseanna Cuevas DUST COLLECTOR ORE CRUSHING 06/29/2013 Nurse visit Brooklynn Vegas MD 04/09/2013 Nurse visit Brooklynn Vegas MD 04/01/2013 Office visit Roseanna Cuevas DUST COLLECTOR ORE CRUSHING 01/22/2013 Nurse visit Brooklynn Vegas MD 10/27/2012 Nurse visit Brooklynn Vegas MD 08/18/2012 Office visit Roseanna Cuevas DUST COLLECTOR ORE CRUSHING 08/12/2012 Office visit Roseanna Cuevas DUST COLLECTOR ORE CRUSHING 08/11/2012 Nurse visit Brooklynn Vegas MD 08/06/2012 Office visit Brooklynn Vegas MD
--- OUTSIDE RECORDS SUMMARY | 2017-07-05 07:32 | XMS REPORT ---
Author Author Libby Jo [facility] Address [address] [place], [place] [id number] Care Team Providers Care Compliance Mgr Name Role Phone Libby Jo PCP Roseanna Cuevas PreferredProvider Allergies and Adverse Reactions Name Reaction Notes NO KNOWN DRUG ALLERGIES Plan of Treatment Planned Activity Comments Planned Date Planned Time Plan/Goal Pap smear auto thin prep w manual MD screen 05/28/2017 12:00 AM Breast ultrasound 06/04/2017 12:00 AM Thoracolumbar radiographs (standing, for scoliosis) [...] 12:00 AM CYTOPATH C/V THIN LAYER Reviewed 05/28/2017 12:00 AM COMPLETE CBC W/AUTO DIFF WBC Returned 05/28/2017 12:00 AM ASSAY THYROID STIM HORMONE Returned 05/28/2017 12:00 AM ASSAY OF FERRITIN Returned 05/28/2017 12:00 AM ASSAY OF FREE THYROXINE Returned 08/11/2012 12:00 AM THER/PROPH/DIAG INJ SC/IM Reviewed [...] 09/22/2013 12:00 AM Decadron, Per 1 Mg [facility]# [address]-09 Reviewed 09/22/2013 12:00 AM Depo-Medrol, Per 80 Mg [facility]#4614-1186-48 Reviewed 12/02/2013 12:00 AM THER/PROPH/DIAG INJ SC/IM [...] 2017 4:09PM Fatigue May 28 2017 4:09PM Breast Lump, right May 30 2017 3:25PM Payers Insurance Name Company Name Plan Name Plan Number Policy Number Policy Group Number Start Date BCBS [facility] [place] [id number] N/A BCBS [facility] [id number] Sunday, 2012 History of Encounters Visit Date Visit Type Provider 05/28/2017 Office visit Libby Jo THERMOSTAT REPAIRER 05/21/2016 Office visit Libby Jo THERMOSTAT REPAIRER 08/22/2015 Nurse visit Libby Jo THERMOSTAT REPAIRER 06/02/2015 Nurse visit Libby Jo THERMOSTAT REPAIRER 05/25/2015 Office visit Libby Jo THERMOSTAT REPAIRER 01/04/2015 [facility] DO 12/23/2014 Hospital [facility] DO 12/22/2014 Office visit João Ferreira DO 11/26/2014 Office visit Libby Jo THERMOSTAT REPAIRER 09/21/2014 Office visit Jayesh Kurtz THERMOSTAT REPAIRER 02/22/2014 Nurse visit Brooklynn Vegas MD 12/02/2013 Nurse visit Brooklynn Vegas MD 09/22/2013 Office visit Roseanna Cuevas THERMOSTAT REPAIRER 09/15/2013 Office visit Libby Jo THERMOSTAT REPAIRER 07/03/2013 Office visit Roseanna Cuevas THERMOSTAT REPAIRER 06/29/2013 Nurse visit Brooklynn Vegas MD 04/09/2013 Nurse visit Brooklynn Vegas MD 04/01/2013 Office visit Roseanna Cuevas THERMOSTAT REPAIRER 01/22/2013 Nurse visit Brooklynn Vegas MD 10/27/2012 Nurse visit Brooklynn Vegas MD 08/18/2012 Office visit Roseanna Cuevas APRN 08/12/2012 Office visit Roseanna Cuevas APRN 08/11/2012 Nurse visit Brooklynn Vegas MD 08/06/2012 Office visit Brooklynn Vegas MD
--- OUTSIDE RECORDS SUMMARY | 2017-07-05 07:33 | XMS REPORT ---
Author Author Roseanna Cuevas Organization [facility] Address [address] [place], [place] [id number] Care Team Providers Care Telegraph Lineman Name Role Phone Roseanna Cuevas PCP Unavailable Allergies and Adverse Reactions Name Reaction Notes NO KNOWN DRUG ALLERGIES Plan of Treatment Planned Activity Comments Planned Date Planned Time Plan/Goal X-RAY EXAM TRUNK SPINE STAND 09/01/2012 12:00 AM ASSAY OF ESTROGEN 09/21/2014 12:00 AM US EXAM PELVIC COMPLETE 09/29/2014 12:00 AM Medications Name Start Date Expiration Date SIG Comments [...] per day for 30 days Problem List Not available. Vital Signs Date Time BP-Sys(mm[Hg] BP-Maria De Jesus(mm[Hg]) HR(bpm) RR(rpm) Temp WT HT HC BMI BSA BMI Percentile O2 Sat(%) 09/21/2014 4:13:00 PM 100 mmHg 65 mmHg [...] Name Description Comments Tobacco Never smoker Alcohol History of Procedures Date Ordered Description Order Status 08/11/2012 12:00 AM THER/PROPH/DIAG INJ SC/IM Reviewed 08/11/2012 12:00 AM URINE TEST Reviewed 08/12/2012 12:00 AM X-RAY EXAM RIBS UNI 2 VIEWS Returned 08/28/2012 12:00 AM X-RAY EXAM THORAC SPINE 2VWS Returned 08/28/2012 12:00 AM X-RAY EXAM L-S SPINE BENDING Returned 10/27/2012 12:00 AM THER/PROPH/DIAG INJ SC/IM Reviewed 01/22/2013 12:00 AM THER/PROPH/DIAG INJ SC/IM Reviewed 04/09/2013 12:00 AM THER/PROPH/DIAG INJ SC/IM Reviewed 06/29/2013 12:00 AM THER/PROPH/DIAG INJ SC/IM Reviewed 09/15/2013 5:02 PM THER/PROPH/DIAG INJ SC/IM Reviewed 09/15/2013 12:00 AM CHLAMYDIA CULTURE Returned 09/15/2013 12:00 AM N.GONORRHOEAE DNA AMP PROB Returned 09/15/2013 12:00 AM HTLV/HIV CONFIRMJ ANTIBODY Returned 09/15/2013 12:00 AM ACUTE HEPATITIS PANEL Returned 09/15/2013 12:00 AM HERPES SIMPLEX TYPE 1 TEST Returned 09/22/2013 12:00 AM THER/PROPH/DIAG INJ SC/IM Reviewed 12/02/2013 12:00 AM THER/PROPH/DIAG INJ SC/IM Reviewed 02/22/2014 12:00 AM THER/PROPH/DIAG INJ SC/IM Reviewed 09/21/2014 12:00 AM COMPLETE CBC W/AUTO DIFF WBC Returned 09/21/2014 12:00 AM COMPREHEN METABOLIC PANEL Returned 09/21/2014 12:00 AM ASSAY OF AMYLASE Returned 09/21/2014 12:00 AM ASSAY OF LIPASE Returned 09/21/2014 12:00 AM CHORIONIC GONADOTROPIN ASSAY Returned 09/21/2014 12:00 AM ASSAY OF GONADOTROPIN ([facility]) Returned Results Summary Data and Description Results 09/15/2013 5:40 PM HIV AG/AB COMBO 0.12 Hep A Ab, IgM Negative HBsAg Screen Negative Hep B Core Ab, IgM Negative Hep C Virus Ab <0.1 09/21/2014 4:57 PM FSH 5.20 mIU/mLLIPASE 23.0 [...] 0.40 mg/ dLCALCIUM 9.80 mg/dLeGFR >60 mL/min/1.73 m2 History Of Immunizations Not available. History of Past Illness Name Date of Onset Comments *No known medical problems Contraceptive Management Aug 06 2012 9:15AM Contraceptive [...] pain in female Sep 29 2014 4:24PM Payers Insurance Name Company Name Plan Name Plan Number Policy Number Policy Group Number Start Date Bcbs [facility] [id number] N/A Bcbs [facility] [id number] Sunday, 2012 History of Encounters Visit Date Visit Type Provider 09/21/2014 Office visit Jayesh Kurtz PROCESS VALIDATION ENGINEER 02/22/2014 Nurse visit Brooklynn Vegas MD 12/02/2013 Nurse visit Brooklynn Vegas MD 09/22/2013 Office visit Roseanna Cuevas PROCESS VALIDATION ENGINEER 09/15/2013 Office visit Libby Jo PROCESS VALIDATION ENGINEER 07/03/2013 Office visit Roseanna Cuevas PROCESS VALIDATION ENGINEER 06/29/2013 Nurse visit Brooklynn Vegas MD 04/09/2013 Nurse visit Brooklynn Vegas MD 04/01/2013 Office visit Roseanna Cuevas PROCESS VALIDATION ENGINEER 01/22/2013 Nurse visit Brooklynn Vegas MD 10/27/2012 Nurse visit Brooklynn Vegas MD 08/18/2012 Office visit Roseanna Cuevas APRN 08/12/2012 Office visit Roseanna Cuevas APRN 08/11/2012 Nurse visit Brooklynn Vegas MD 08/06/2012 Office visit Brooklynn Vegas MD
--- OUTSIDE RECORDS SUMMARY | 2017-07-05 07:34 | XMS REPORT ---
Author Author Libby Jo [facility] Address [address] [place], [place] [id number] Care Team Providers Care Instructional Facilitator Name Role Phone Libby Jo PCP Unavailable Allergies and Adverse Reactions Name Reaction Notes NO KNOWN DRUG ALLERGIES Plan of Treatment Planned Activity Comments Planned Date Planned Time Plan/Goal THER/PROPH/DIAG INJ SC/IM 08/22/2015 12:00 AM X-RAY EXAM TRUNK SPINE STAND 09/01/2012 12:00 AM Medications Name Start Date Expiration [...] HC BMI BSA BMI Percentile O2 Sat(%) 08/22/2015 4:37:00 PM 108 mmHg 63 mmHg [...] 06/02/2015 12:00 AM THER/PROPH/DIAG INJ SC/IM Reviewed 08/11/2012 12:00 AM THER/PROPH/DIAG INJ SC/IM [...] 09/22/2013 12:00 AM Decadron, Per 1 Mg [facility]# [address]-58 Reviewed 09/22/2013 12:00 AM Depo-Medrol, Per 80 Mg [facility]#0873-8481-95 Reviewed 12/02/2013 12:00 AM THER/PROPH/DIAG INJ SC/IM [...] 0.40 mg/ dLCALCIUM 9.80 mg/dLeGFR >60 mL/min/1.73 [id number], Total 160.0 pg/mL 11/26/2014 10:50 AM Test, [...] 0.30 mg/dLCALCIUM 9.50 mg/ dLeGFR >60 mL/min/1.73m 06/02/2015 11:40 AM Test, Urine negative History Of Immunizations Not available. History of [...] Contraceptive counseling (Depo-Provera) Aug 22 2015 4:42PM Payers Insurance Name Company Name Plan Name Plan Number Policy Number Policy Group Number Start Date BCBS [facility] [place] [id number] N/A BCBS [facility] [place] [id number] Sunday, 2012 History of Encounters Visit Date Visit Type Provider 08/22/2015 Nurse visit Libby Jo TARIFF SUPERVISOR 06/02/2015 Nurse visit Libby Jo TARIFF SUPERVISOR 05/25/2015 Office visit Libby Jo TARIFF SUPERVISOR 01/04/2015 Surgery João Ferreira DO 12/23/2014 Hospital João Ferreira DO 12/22/2014 Office visit João Ferreira DO 11/26/2014 Office visit Libby Jo TARIFF SUPERVISOR 09/21/2014 Office visit Jayesh Kurtz TARIFF SUPERVISOR 02/22/2014 Nurse visit Brooklynn Vegas MD 12/02/2013 Nurse visit Brooklynn Vegas MD 09/22/2013 Office visit Roseanna Cuevas TARIFF SUPERVISOR 09/15/2013 Office visit Libby Jo TARIFF SUPERVISOR 07/03/2013 Office visit Roseanna Cuevas TARIFF SUPERVISOR 06/29/2013 Nurse visit Brooklynn Vegas MD 04/09/2013 Nurse visit Brooklynn Vegas MD 04/01/2013 Office visit Roseanna Cuevas TARIFF SUPERVISOR 01/22/2013 Nurse visit Brooklynn Vegas MD 10/27/2012 Nurse visit Brooklynn Vegas MD 08/18/2012 Office visit Roseanna Cuevas TARIFF SUPERVISOR 08/12/2012 Office visit Roseanna Cuevas TARIFF SUPERVISOR 08/11/2012 Nurse visit Brooklynn Vegas MD 08/06/2012 Office visit Brooklynn Vegas MD
--- OUTSIDE RECORDS SUMMARY | 2017-07-05 07:34 | XMS REPORT ---
Author Author Libby Jo [facility] Address [address] [place], [place] [id number] Care Team Providers Care Multiple Punch Press Operator Name Role Phone Libby Jo PCP Unavailable Allergies and Adverse Reactions Name Reaction Notes NO KNOWN DRUG ALLERGIES Plan of Treatment Planned Activity Comments Planned Date Planned Time Plan/Goal X-RAY EXAM TRUNK SPINE STAND 09/01/2012 12:00 AM Medications Active Name Start Date Estimated Completion Date SIG Comments Sprintec (28) 0.25-35 mg-mcg oral tablet 11/14/2015 take 1 tablet by oral route once daily Name Start Date Expiration Date SIG Comments [...] 12:00 AM Decadron, Per 1 Mg [facility]# [address]-63 Reviewed 09/22/2013 12:00 AM Depo-Medrol, Per 80 Mg [facility]#7004-1380-87 Reviewed 12/02/2013 12:00 AM THER/PROPH/DIAG INJ SC/IM [...] 0.40 mg/ dLCALCIUM 9.80 mg/dLeGFR >60 mL/min/1.73 [id number], Total 160.0 pg/mL 11/26/2014 10:50 AM Test, [...] Policy Group Number Start Date BCBS Bcbs [facility] [id number] N/A BCBS Bcbs [facility] [id number] Sunday, 2012 History of Encounters Visit Date Visit Type Provider 08/22/2015 Nurse visit Libby Jo DIGITAL SERVICE ENGINEER 06/02/2015 Nurse visit Libby Jo DIGITAL SERVICE ENGINEER 05/25/2015 Office visit Libby Jo DIGITAL SERVICE ENGINEER 01/04/2015 Surgery [facility] 12/23/2014 Hospital [facility] DO 12/22/2014 Office visit João Ferreira DO 11/26/2014 Office visit Libby Jo DIGITAL SERVICE ENGINEER 09/21/2014 Office visit Jayesh Kurtz DIGITAL SERVICE ENGINEER 02/22/2014 Nurse visit Brooklynn Vegas MD 12/02/2013 Nurse visit Brooklynn Vegas MD 09/22/2013 Office visit Rosaenna Cuveas DIGITAL SERVICE ENGINEER 09/15/2013 Office visit Libby Jo DIGITAL SERVICE ENGINEER 07/03/2013 Office visit Roseanna Cuevas DIGITAL SERVICE ENGINEER 06/29/2013 Nurse visit Brookylnn Vegas MD 04/09/2013 Nurse visit Boroklynn Vegas MD 04/01/2013 Office visit Roseanna Cuevas DIGITAL SERVICE ENGINEER 01/22/2013 Nurse visit Brooklynn Vegas MD 10/27/2012 Nurse visit Brooklynn Vegas MD 08/18/2012 Office visit Roseanna Cuevas DIGITAL SERVICE ENGINEER 08/12/2012 Office visit Roseanna Cuevas DIGITAL SERVICE ENGINEER 08/11/2012 Nurse visit Brooklynn Vegas MD 08/06/2012 Office visit Brooklynn Vegas MD
--- OUTSIDE RECORDS SUMMARY | 2017-07-05 07:35 | XMS REPORT ---
Author Author Roseanna Cuevas Organization [facility] Address [address] [place], [place] [id number] Care Team Providers Care Brake Drum Molder Name Role Phone Roseanna Cuevas PCP Unavailable Allergies and Adverse Reactions Name Reaction Notes NO KNOWN DRUG ALLERGIES Plan of Treatment Planned Activity Comments Planned Date Planned Time Plan/Goal X-RAY EXAM TRUNK SPINE STAND 09/01/2012 12:00 AM Medications Active Name Start Date Estimated Completion Date SIG Comments Ultram ER oral tablet extended release 24 hr 100 mg 11/26/2014 11/29/2014 take 1 tablet (100 mg) by oral route once daily for 3 days ibuprofen oral tablet 800 mg 11/26/2014 12/26/2014 [...] take 1 tablet by mouth daily at triamcinolone acetonide topical cream 0.1 % 08/12/2013 [...] HC BMI BSA BMI Percentile O2 Sat(%) 11/26/2014 9:51:00 AM 122 mmHg 72 mmHg [...] F 97.375 lbs 62.5 in 17.53 kg/m2 1.3956 m 4.3 % 08/11/2012 9:12:00 AM 108 mmHg 68 mmHg 83 bpm 98.2 F 94 lbs 62.5 in 16.9187 kg/m 1.37 m2 -1.3 % 08/06/2012 9:13:00 AM 109 mmHg 70 mmHg 83 bpm 98 F 100.25 lbs 62.5 in 18.04 kg/m2 1.4161 m 9.1 % Social History Name [...] Returned 11/26/2014 10:50 AM URINE TEST Reviewed Results Summary Data and Description Results [...] 0.40 mg/ dLCALCIUM 9.80 mg/dLeGFR >60 mL/min/1.73 [id number], Total 160.0 pg/mL 11/26/2014 10:50 AM Test, Urine negative History Of Immunizations [...] 9:55AM Ovarian Cyst Nov 26 2014 9:55AM Payers Insurance Name Company Name Plan Name Plan Number Policy Number Policy Group Number Start Date Bcbs Bcbs [facility] [id number] N/A Bcbs [facility] [id number] Sunday, 2012 History of Encounters Visit Date Visit Type Provider 11/26/2014 Office visit Libby Jo ACCOUNTS SUPERVISOR 09/21/2014 Office visit Jayesh Kurtz ACCOUNTS SUPERVISOR 02/22/2014 Nurse visit Brooklynn Vegas MD 12/02/2013 Nurse visit Brooklynn Vegas MD 09/22/2013 Office visit Roseanna Cuevas ACCOUNTS SUPERVISOR 09/15/2013 Office visit Libby Jo ACCOUNTS SUPERVISOR 07/03/2013 Office visit Roseanna Cuevas ACCOUNTS SUPERVISOR 06/29/2013 Nurse visit Brooklynn Vegas MD 04/09/2013 Nurse visit Brooklynn Vegas MD 04/01/2013 Office visit Roseanna Cuevas ACCOUNTS SUPERVISOR 01/22/2013 Nurse visit Brooklynn Vegas MD 10/27/2012 Nurse visit Brooklynn Vegas MD 08/18/2012 Office visit Roseanna Cuevas ACCOUNTS SUPERVISOR 08/12/2012 Office visit Roseanna Cuevas ACCOUNTS SUPERVISOR 08/11/2012 Nurse visit Brooklynn Vegas MD 08/06/2012 Office visit Brooklynn Vegas MD
--- OUTSIDE RECORDS SUMMARY | 2017-07-05 07:35 | XMS REPORT | CCD ---
Author Author AJAY CHAMBERS Organization Unknown Address [address] [place], [place] [id number] Care Team Providers Care Strapper Operator Name Role Phone THEA CASTLE DO Fermin Attphys Vital Signs Vital Sign Value Unit Date/Time Recent/Initial? Weight Measured 117 lbs 12/22/2014 12:23 Initial VS Height 62 in 12/22/2014 12:23 Initial VS BMI (Body Mass Index) 21.4 kg/m^2 12/22/2014 12:23 Initial VS BSA (Body Surface Area) 1.52 m^2 12/22/2014 12:23 Initial VS BP Systolic 108 mmHg 12/23/2014 11:58 Initial VS BP Diastolic 66 mmHg 12/23/2014 11:58 Initial VS Respiratory Rate 24 bpm 12/23/2014 11:58 Initial VS Heart Rate 71 bpm 12/23/2014 11:58 Initial VS O2 % BldC Oximetry 99 % 12/23/2014 11:58 Initial VS BP Systolic 103 mmHg 12/23/2014 12:56 Most Recent VS BP Diastolic 65 mmHg 12/23/2014 12:56 Most Recent VS Respiratory Rate 12 bpm 12/23/2014 12:58 Most Recent VS Heart Rate 57 bpm 12/23/2014 12:58 Most Recent VS O2 % BldC Oximetry 99 % 12/23/2014 12:58 Most Recent VS Allergies Allergy Code Allergy Type Reaction Status No Known Drug Allergies 0 No known drug allergies Active Procedures Procedure Code Procedure Type Date LAPARASCOPIC CHOLECYSTECTOMY 5123 ICD-9 CM, Volume 3 12/[address] 12/23/2014 PATHOLOGY ORDER [id number] SNOMED [address] 12/23/[id number] 12/23/2014 History of Immunizations Unknown or Not Available. Problems Unknown or Not Available. Results TEST - Collect Date/Time: 12/23/2014 10:20 Test Name Code Test Result Test Units Test Ref Range TEST 2117-8 NEGATIVE N/A Active Medications No Active Medications Medications Administered During Visit Unknown or Not Available. Encounters Encounter Diagnosis Diagnosis Code Start Date CHRONIC CHOLECYSTITIS 24571 12/23/2014 Social History Smoking Status Code Start Date End Date Never smoker [id number] Patient Decision Aids Patient Decision Aid CHOLECYSTECTOMY; AFTER THE PROCEDURE Discharge Instructions You were admitted to [facility] on 12/23/2014 with a principal diagnosis of CHRONIC CHOLECYSTITIS. You had the following procedures done: LAPAROSCOPIC CHOLECYSTECTOMY You were discharged from [facility] on 12/23/2014. Should you have any questions prior to discharge, please contact a member of your healthcare team. If you have left the hospital and have any questions, please contact your primary care physician. Chief Complaint and Reason For Visit Chief Complaint Date of Onset LAP SWATHI Function Status Unknown or Not Available. Plan of Care Unknown or Not Available. Referral/Transition of Care Unknown or Not Available.
--- OUTSIDE RECORDS SUMMARY | 2017-07-05 07:35 | XMS REPORT ---
Author Author Roseanna Cuevas Organization [facility] Address [address] [place], [place] [phone] Care Team Providers Care Coal Sampler Name Role Phone Roseanna Cuevas PCP Unavailable Allergies and Adverse Reactions Name Reaction Notes NO KNOWN DRUG ALLERGIES Plan of Treatment Planned Activity Comments Planned Date Planned Time Plan/Goal X-RAY EXAM TRUNK SPINE STAND 09/01/2012 12:00 AM COMPLETE CBC W/AUTO DIFF WBC 09/21/2014 12:00 AM COMPREHEN METABOLIC PANEL 09/21/2014 12:00 AM ASSAY OF AMYLASE 09/21/2014 12:00 AM ASSAY OF LIPASE 09/21/2014 12:00 AM CHORIONIC GONADOTROPIN ASSAY 09/21/2014 12:00 AM ASSAY OF GONADOTROPIN (FSH) 09/21/2014 12:00 AM ASSAY OF ESTROGEN 09/21/2014 12:00 AM Medications Name Start Date Expiration [...] 02/22/2014 12:00 AM THER/PROPH/DIAG INJ SC/IM Reviewed Results Summary Data and Description Results 09/15/2013 5:40 PM HIV AG/AB COMBO 0.12 Hep A Ab, IgM Negative HBsAg Screen Negative Hep B Core Ab, IgM Negative Hep C Virus Ab <0.1 History Of Immunizations Not available. History of [...] pain in female Sep 21 2014 4:14PM Payers Insurance Name Company Name Plan Name Plan Number Policy Number Policy Group Number [id number] [id number] Sunday, 2012 History of Encounters Visit Date Visit Type Provider 09/21/2014 Office visit Jayesh Kurtz ADOPTION AGENT 02/22/2014 Nurse visit Brooklynn Vegas MD 12/02/2013 Nurse visit Brooklynn Vegas MD 09/22/2013 Office visit Roseanna Cuevas ADOPTION AGENT 09/15/2013 Office visit Libby Jo ADOPTION AGENT 07/03/2013 Office visit Roseanna Cuevas ADOPTION AGENT 06/29/2013 Nurse visit Brooklynn Vegas MD 04/09/2013 Nurse visit Brooklynn Vegas MD 04/01/2013 Office visit Roseanna Cuevas ADOPTION AGENT 01/22/2013 Nurse visit Brooklynn Vegas MD 10/27/2012 Nurse visit Brooklynn Vegas MD 08/18/2012 Office visit Roseanna Cuevas ADOPTION AGENT 08/12/2012 Office visit Roseanna Cuevas ADOPTION AGENT 08/11/2012 Nurse visit Brooklynn Vegas MD 08/06/2012 Office visit Brooklynn Vegas MD
--- OUTSIDE RECORDS SUMMARY | 2017-07-05 07:36 | XMS REPORT | Continuity of Care Document ---
Author Author [facility] Organization [facility] Address Unknown Phone Unavailable Allergies There is no data. Medications There is no data. Problems There is no data. Procedures There is no data. Results There is no data. Encounters ACCT No. Visit Date/Time Discharge Status Pt. Type Provider Facility Loc./Unit Complaint [id number] 05/28/2017 17:15:15 05/28/2017 23:59:59 CLS Outpatient Libby Jo [id number] 05/21/2016 17:40:15 05/21/2016 23:59:59 CLS Outpatient Libby Jo [id number] 06/02/2015 12:11:42 06/02/2015 23:59:59 CLS Outpatient Libby Jo [id number] 05/25/2015 16:02:24 05/25/2015 23:59:59 CLS Outpatient Libby Jo [id number] 01/04/2015 12:23:43 01/04/2015 23:59:59 CLS Outpatient João Ferreira [id number] 12/27/2014 12:15:10 12/27/2014 23:59:59 CLS Outpatient João Ferreira [id number] 12/22/2014 12:18:32 12/22/2014 23:59:59 CLS Outpatient João Ferreira [id number] 12/13/2014 22:23:22 12/13/2014 23:59:59 CLS Outpatient Libby Jo [id number] 12/13/2014 21:31:50 12/13/2014 23:59:59 CLS Outpatient Jayesh Kurtz [id number] 02/22/2014 17:30:29 02/22/2014 23:59:59 CLS Outpatient Brooklynn Vegas [id number] 12/02/2013 18:04:05 12/02/2013 23:59:59 CLS Outpatient Brooklynn Vegas [id number] 09/22/2013 09:25:25 09/22/2013 23:59:59 CLS Outpatient Roseanna Cuevas [id number] 09/15/2013 17:30:49 09/15/2013 23:59:59 CLS Outpatient Libby Jo [id number] 07/03/2013 11:50:24 07/03/2013 23:59:59 CLS Outpatient Roseanna Cuevas [id number] 06/29/2013 17:40:05 06/29/2013 23:59:59 CLS Outpatient Brooklynn Vegas
--- OUTSIDE RECORDS SUMMARY | 2017-07-05 07:36 | XMS REPORT ---
Author Author Roseanna Cuevas Organization [facility] Address [address] [place], [place] [phone] Care Team Providers Care Brainer Name Role Phone Roseanna Cuevas PCP Unavailable Allergies and Adverse Reactions Name Reaction Notes NO KNOWN DRUG ALLERGIES Plan of Treatment Planned Activity Comments Planned Date Planned Time Plan/Goal X-RAY EXAM TRUNK SPINE STAND 09/01/2012 12:00 AM COMPLETE CBC W/AUTO DIFF WBC 12/16/2014 12:00 AM COMPREHEN METABOLIC PANEL 12/16/2014 12:00 AM ASSAY OF AMYLASE 12/16/2014 12:00 AM ASSAY OF LIPASE 12/16/2014 12:00 AM ECHO EXAM OF ABDOMEN 12/16/2014 12:00 AM Medications Active Name Start Date [...] 12:00 AM Decadron, Per 1 Mg [facility]# [address]-55 Reviewed 09/22/2013 12:00 AM Depo-Medrol, Per 80 Mg [facility]#5994-5797-36 Reviewed 12/02/2013 12:00 AM THER/PROPH/DIAG INJ SC/IM [...] 12:00 AM COMPLETE CBC W/AUTO DIFF WBC Ordered 12/16/2014 12:00 AM COMPREHEN METABOLIC PANEL Ordered 12/16/2014 12:00 AM ASSAY OF AMYLASE Ordered 12/16/2014 12:00 AM ASSAY OF LIPASE Ordered 12/16/2014 12:00 AM ECHO EXAM OF ABDOMEN Ordered Results Summary Data and Description Results 09/15/2013 [...] 0.40 mg/ dLCALCIUM 9.80 mg/dLeGFR >60 mL/min/1.73 [id number], Total 160.0 pg/mL 11/26/2014 10:50 AM Test, [...] 2014 10:46AM Vomiting Dec 16 2014 10:46AM Payers Insurance Name Company Name Plan Name Plan Number Policy Number Policy Group Number Start Date [id number] [facility] [id number] Sunday, 2012 History of Encounters Visit Date Visit Type Provider 11/26/2014 Office visit Libby Jo ORCHARD HAND 09/21/2014 Office visit Jayesh Kurtz ORCHARD HAND 02/22/2014 Nurse visit Brooklynn Vegas MD 12/02/2013 Nurse visit Brooklynn Vegas MD 09/22/2013 Office visit Roseanna Cuevas ORCHARD HAND 09/15/2013 Office visit Libby Jo ORCHARD HAND 07/03/2013 Office visit Roseanna Cuevas ORCHARD HAND 06/29/2013 Nurse visit Brooklynn Vegas MD 04/09/2013 Nurse visit Brooklynn Vegas MD 04/01/2013 Office visit Roseanna Cuevas ORCHARD HAND 01/22/2013 Nurse visit Brokolynn Vegas MD 10/27/2012 Nurse visit Brooklynn Vegas MD 08/18/2012 Office visit Roseanna Cuevas ORCHARD HAND 08/12/2012 Office visit Roseanna Cuevas ORCHARD HAND 08/11/2012 Nurse visit Brooklynn Vegas MD 08/06/2012 Office visit Brooklynn Vegas MD
[2017-07-05] MEDS ORDERED: ceFAZolin 1 GM/NS 100 ML IVPB IV ONE ×2 (07:45)
[2017-07-05] MEDS ORDERED: LACTATED RINGERS 1,000 ML IV PRN (07:48)
[2017-07-05 07:59] VITALS: BP 115/70
[2017-07-05] MEDS ORDERED: ceFAZolin INJECTION 1,000 MG in NS (IVPB) 50 ML IV ONE (08:00)
[2017-07-05] MEDS ORDERED: BUP/EPI 0.5% 1:200,000 (SENSORCAINE) 30 ML VIAL ONE (08:14)
[2017-07-05] MEDS ORDERED: LIDOCAINE PF 2% 5 ML (XYLOCAINE) VIAL ONE (08:19)
[2017-07-05] MEDS ORDERED: proPOfol 200 MG/20 ML (DIPRIVAN) VIAL IV ONE (08:19)
[2017-07-05] MEDS ORDERED: SEVOFLURANE (ULTANE) 15 ML INHAL SOLN ONE ×3 (08:19→09:22)
[2017-07-05] MEDS ORDERED: MIDAZOLAM 2 MG/2 ML (VERSED) VIAL ONE (08:19)
[2017-07-05] MEDS ORDERED: fentaNYL INJECTION 100 MCG/2 ML AMP ONE (08:19)
--- NOTE | 2017-07-05 08:44 | Progress Note-Pre Operative ---
Pre-Operative Progress Note H&P Reviewed The H&P was reviewed, patient examined and no changes noted. Date Seen by Provider: Jul 01, 2017 Time Seen by Provider: 15:00 Date H&P Reviewed: Jul 05, 2017 Time H&P Reviewed: 08:43 Pre-Operative Diagnosis: Bilateral Breast Lumps SHAMA WILKINSON MD Jul 05, 2017 8:44 am
[2017-07-05] MEDS ORDERED: DEXAMETHASONE 10 MG/ML (DECADRON) 1 ML VIAL ONE (09:01)
[2017-07-05] MEDS ORDERED: ONDANSETRON 4 MG/2 ML (SDV) Z0FRAN ONE ×2 (09:01→09:35)
--- NOTE | 2017-07-05 09:26 | Operative Report ---
Operative Report Date of Procedure/Surgery Jul 05, 2017 Surgeon (s) SHAMA WILKINSON MD Basin Operator (s): N/A Post-Operative Diagnosis Same Procedure Performed Excision of bilateral breast lumps Description of Procedure Anesthesia Type: General Estimated blood loss (mL): Minimal Specimen(s) collected/removed breast lumps Description of the Procedure Indication for the procedure: This young lady presented with a palpable lump involving each breast, having the clinical and radiologic features of fibroadenoma. She was offered simple excision. Informed consent was obtained after reviewing the operative details and complications of hematoma and wound infection. Description of procedure: She was placed supine on the operative table and general anesthesia induced using a laryngeal mask airway. A gram of Ancef was administered intravenously as prophylaxis against wound infection. Sequential compression devices were placed around her legs, to minimize the risk of venous thrombosis or Both breasts were prepared and draped in the usual sterile manner. Excision of lump right breast:. A 2 cm curved incision was made over the lump along the medial aspect of the right breast and the lump, having the appearance of a multilobulated fibroadenoma, excised intact. Hemostasis was achieved using cautery and the incision closed using 3-0 Vicryl for the deeper layer and 4-0 Vicryl for skin, in a subcuticular fashion. Steri-Strips were applied Excision of lump left breast: A similar excision was performed and the wound closed using 4-0 Vicryl, in a subcuticular fashion. She tolerated the procedure well and was taken back to the nursing area in his condition, after being extubated. Findings of the Procedure See op report Allergies and Home Medications Allergies Coded Allergies: No Known Drug Allergies (Unverified , 07/03/17) Home Medications Multivitamin 1 Each Tablet, 1 EACH PO DAILY, (Reported) [Bcp] , PO DAILY, (Reported) Patient Home Medication List Home Medication List Reviewed: Yes SHAMA WILKINSON MD Jul 05, 2017 9:26 am
[2017-07-05] MEDS ORDERED: ACHD5005 PO (09:27)
--- NOTE | 2017-07-05 09:27 | Discharge Inst-Simple/Standard ---
Discharge Inst-Standard Discharge Medications New, Converted or Re-Newed RX: RX on Chart Patient Instructions/Follow Up Plan of Care/Instructions/FU: Follow-up in 3 weeks. We shall call once pathology reports become available Activity as Tolerated: Yes Discharge Diet: No Restrictions SHAMA WILKINSON MD Jul 05, 2017 9:27 am
[2017-07-05] MEDS ORDERED: morphine INJ 10 MG/ML 1ML (SYR OR VIAL) ONE (09:34)
[2017-07-05] MEDS ORDERED: MEPERIDINE (DEMEROL) INJ 50 MG/ML ONE (09:41)
[2017-07-05] MEDS ORDERED: MEPERIDINE (DEMEROL) INJ 50 MG/ML IVP PRN (09:45)
[2017-07-05] MEDS ORDERED: morphine INJ 10 MG/ML 1ML (SYR OR VIAL) IVP PRN (09:45)
[2017-07-05] MEDS ORDERED: ONDANSETRON 4 MG/2 ML (SDV) Z0FRAN IVP PRN (09:45)
--- NOTE | 2017-07-05 09:51 | Anesthesia-General Post-Op ---
General Patient Condition Mental Status/LOC: Same as Preop Cardiovascular: Satisfactory Nausea/Vomiting: Absent Respiratory: Satisfactory Pain: Controlled Complications: Absent Post Op Complications Complications None Follow Up Care/Instructions Patient Instructions None needed. Anesthesia/Patient Condition Patient Condition Patient is doing well, no complaints, stable vital signs, no apparent adverse anesthesia problems. No complications reported per nursing. MUSHTAQ SANTOS CRNA Jul 05, 2017 09:51
[2017-07-05 10:25] VITALS: BP 108/67
[2017-07-05 10:55] VITALS: BP 103/67
[2017-07-05 11:25] VITALS: BP 101/63
[2017-07-05 11:28] VITALS: BP 101/63
== END 2017-07-05 11:28 | disposition home or self-care (01) ==
LOC: SDC 07:25
PROVIDERS: ATTEND Surgery
DX: D24.1 Benign neoplasm of right breast (principal); D24.2 Benign neoplasm of left breast
CPT/HCPCS: 84703; 87081

== ENCOUNTER 2021-03-08 17:57 | Outpatient (CLI) | payer BC ==
[~2021-03-08] VITALS: Ht 157.5 cm; Wt 51.5 kg
[~2021-03-08 17:57] MED LIST changes: +ACHD5005 PO
[2021-03-08 18:29] LABS: BILIRUBIN,URINE NEGATIVE (NEGATIVE); CLARITY,URINE CLEAR; COLOR,URINE YELLOW; GLUCOSE, URINE (UA) NEGATIVE (NEGATIVE); KETONES,URINE 3+ (NEGATIVE); LEUKOCYTE ESTERASE ,URINE NEGATIVE (NEGATIVE); NITRITE,URINE NEGATIVE (NEGATIVE); PROTEIN,URINE TRACE (NEGATIVE)
[2021-03-08] MEDS ORDERED: D5 LR IV SOLUTION 1,000 ML IV ONE (18:38)
[2021-03-08] MEDS ORDERED: ONDANSETRON 4 MG/2 ML (SDV) Z0FRAN ONE (18:38)
[2021-03-08] MEDS ORDERED: ONDANSETRON 4 MG/2 ML (SDV) Z0FRAN IVP ONE ×2 (18:45→20:45)
[2021-03-08] MEDS ORDERED: D5 LR IV SOLUTION 1,000 ML IV SCH ×2 (18:45→20:45)
[2021-03-08] MEDS ORDERED: LOPERAMIDE 2 MG (IMODIUM) TABLET PO PRN (18:45)
[2021-03-08] MEDS ORDERED: LOPERAMIDE 2 MG (IMODIUM) TABLET PO ONE (18:45)
[2021-03-08 18:50] LABS: BACTERIA,URINE TRACE /HPF; RBC,URINE 0-2 /HPF
[2021-03-08] MEDS ORDERED: PREN-37 PO (18:53)
[2021-03-08 18:55] VITALS: BP 98/62
[2021-03-08 19:10] LABS: BASOPHILS % (AUTO) 0 % (0-10); EOSINOPHILS % (AUTO) 0 % (0-10); HEMATOCRIT 30 % (35-52); HEMOGLOBIN 9.6 g/dL (11.5-16.0); LYMPHOCYTES # (AUTO) 0.5 10^3/uL (1.0-4.0); LYMPHOCYTES % (AUTO) 7 % (12-44); MEAN CORPUSCULAR HEMOGLOBIN 27 pg (25-34); MEAN CORPUSCULAR HGB CONC 33 g/dL (32-36); MEAN CORPUSCULAR VOLUME 82 fL (80-99); MEAN PLATELET VOLUME 8.7 fL (9.0-12.2); MONOCYTES # (AUTO) 0.3 10^3/uL (0.0-1.0); MONOCYTES % (AUTO) 5 % (0-12); NEUTROPHILS # (AUTO) 5.6 10^3/uL (1.8-7.8); NEUTROPHILS % (AUTO) 87 % (42-75); PLATELET COUNT 212 10^3/uL (130-400); WHITE BLOOD COUNT 6.4 10^3/uL (4.3-11.0)
[2021-03-08 19:29] LABS: ALBUMIN 3.2 GM/DL (3.2-4.5); BILIRUBIN,TOTAL 0.5 MG/DL (0.1-1.0); CALCIUM 8.2 MG/DL (8.5-10.1); CREATININE SERUM 0.64 MG/DL (0.60-1.30); POTASSIUM 3.2 MMOL/L (3.6-5.0); TOTAL PROTEIN 6.6 GM/DL (6.4-8.2)
[2021-03-08 19:39] LABS: ATYPICAL LYMPHOCYTES 1 %; ELLIPT/OVALOCYTES SLIGHT; HYPOCHROMASIA SLIGHT; LYMPHOCYTES % (MANUAL) 6 %; MONOCYTES % (MANUAL) 6 %; NEUTROPHILS % (MANUAL) 87 %; NUCLEATED RED BLOOD CELLS 1
[2021-03-08 20:50] VITALS: BP 95/58
--- NOTE | 2021-03-09 07:58 | Physician Query-Final Dx ---
ALIYAH VANN 03/09/21 0758: Clinic Account Progress/Dx Physician Query: Please give diagnosis Please include # weeks gestation Date of Service Mar 08, 2021 at 17:57 SHARON RESENDIZ MD 03/12/21 1855: Clinic Account Progress/Dx DIAGNOSIS: Diagnosis 28 weeks with viral syndrome ALIYAH VANN Mar 09, 2021 07:58 SHARON RESENDIZ MD Mar 12, 2021 18:55
== END 2021-03-08 22:45 | disposition home or self-care (01) ==
LOC: LDRP 17:57 → WSo 17:57 → LDRP 19:04 → WSo 22:45
PROVIDERS: ATTEND Obstetrics & Gynecology
DX: O98.513 Other viral diseases complicating pregnancy, third trimester (principal); B34.9 Viral infection, unspecified; Z3A.28 28 weeks gestation of pregnancy
CPT/HCPCS: 80053; 81000; 85007; 85027; 96361; 96374; 96376; G0463; 36415; 99213

== ENCOUNTER 2021-05-19 21:53 | Outpatient (CLI) | payer BC ==
[~2021-05-19] VITALS: Ht 157.9 cm; Wt 56.9 kg
[~2021-05-19 21:53] MED LIST changes: +PREN-37 PO
[2021-05-19 23:02] VITALS: BP 120/81
[2021-05-19 23:40] VITALS: BP 120/81
--- NOTE | 2021-05-22 08:26 | Physician Query-Final Dx ---
Clinic Account Progress/Dx Physician Query: Please give diagnosis Please include the # weeks gestation Date of Service May 19, 2021 at 21:53 BHAVANI,MayMay 22, 2021 08:26
== END 2021-05-19 23:15 ==
LOC: WSo 21:53 → LDRP 21:53 → WSo 23:15
PROVIDERS: ATTEND Obstetrics & Gynecology
DX: Z34.93 Encounter for supervision of normal pregnancy, unspecified, third trimester (principal); Z3A.38 38 weeks gestation of pregnancy
CPT/HCPCS: 84112; G0463; 99213

== ENCOUNTER 2021-05-21 08:20 | Outpatient (CLI) | payer BC ==
[~2021-05-21] VITALS: Ht 157.5 cm; Wt 57.5 kg
[2021-05-21 08:40] VITALS: BP 108/59
[2021-05-21 08:50] LABS: BILIRUBIN,URINE NEGATIVE (NEGATIVE); CLARITY,URINE CLEAR; COLOR,URINE YELLOW; GLUCOSE, URINE (UA) NEGATIVE (NEGATIVE); KETONES,URINE NEGATIVE (NEGATIVE); LEUKOCYTE ESTERASE ,URINE TRACE (NEGATIVE); NITRITE,URINE NEGATIVE (NEGATIVE); PROTEIN,URINE NEGATIVE (NEGATIVE)
[2021-05-21] MEDS ORDERED: FERR240T15 PO ×2 (08:50)
[2021-05-21 08:58] LABS: BACTERIA,URINE NEGATIVE /HPF; WBC,URINE RARE /HPF
--- NOTE | 2021-05-21 13:39 | OB Triage Report ---
Standard Progress Note Progress Notes/Assess & Plan Date Seen by a Provider: May 21, 2021 Time Seen by a Provider: 13:38 Expected Date of Delivery: May 29, 2021 Gestational Age in Weeks: 38 Gestational Age in Days: 6 LMP/JACOB Comment: JACOB 05/29/21 Progress/Assessment & Plan S: Patient is a 25 yo with IUP at 38w6d, who presents for contractions since about 2am. Reports mostly RLQ pain that comes and goes every 6-8 minutes. Rates pain as 8/10. She has not tried anything for pain management, but was able to clean the house this morning before coming in. Denies any vaginal bleeding or LOF. She is feeling good movements. Patient has been seen on L&D triage several times over the weekend for contractions, and was also evaluated to r/o ROM and was negative. SVE has been about 1/80/-3 for several days. O: Vital Signs 05/21/21 05/21/21 08:40 15:20 Temp 36.3 Pulse 89 Resp 20 B/P (MAP) 116/71 (86) Pulse Ox 99 O2 Delivery Room Air Gen: no acute distress, resting comfortably Lungs: non-labored breathing, symmetric chest rise Heart: normal heart rate and peripheral perfusion, no edema LE: NTTP, no edema SVE: 1/75/-3, cervix posterior FHR: 130bpm, mod marciano, + accels, - decels Contractions: q2-5 min A/P: 25 yo with IUP at 38w6d, who presents for contractions. Likely latent labor. FHT is reactive. SVE has remained unchanged for several days. Patient appears comfortable in bed. She initially refused pain management while in triage. However, she eventually tried Tylenol with improvement of her pain. Reassurance was provided, and patient desired discharge home to return when symptoms worsen. Return precautions were discussed including vaginal bleeding, LOF, painful and regular contractions q3-5 minutes that do not improve with activity, rest, Tylenol, hydration. Return for persistent HUYNH, CP, SOB, vision abnormalities. Patient verbalized understanding. Final Diagnosis IUP at 38w6d Contractions without cervical change JOEY AWAD MD May 21, 2021 13:39
[2021-05-21] MEDS ORDERED: ACETAMINOPHEN 500 MG TAB (TYLENOL) PO ONE (13:45)
[2021-05-21] MEDS ORDERED: ACETAMINOPHEN 500 MG TAB (TYLENOL) ONE (13:51)
[2021-05-21] MEDS ORDERED: CYCLOBENZAPRINE 10 MG (FLEXERIL) TAB ONE (13:51)
[2021-05-21 15:20] VITALS: BP 116/71
[2021-05-21] MEDS ORDERED: CYCLOBENZAPRINE 10 MG (FLEXERIL) TAB PO SCH (21:00)
== END 2021-05-21 15:30 | disposition home or self-care (01) ==
LOC: WSo 08:20 → LDRP 08:21 → WSo 15:30
PROVIDERS: ATTEND Obstetrics & Gynecology
DX: O62.9 Abnormality of forces of labor, unspecified (principal); Z3A.38 38 weeks gestation of pregnancy
CPT/HCPCS: 81000; G0463; 99214

== ENCOUNTER 2021-05-22 23:20 | Inpatient (IN) | payer BC ==
[~2021-05-22] VITALS: Ht 157 cm; Wt 57.0 kg
[~2021-05-22 23:20] MED LIST changes: +FERR240T15 PO
[2021-05-22] MEDS ORDERED: D5 LR IV SOLUTION 1,000 ML IV ONE (23:42)
[2021-05-22 23:51] VITALS: BP 104/66
[2021-05-22] MEDS: D5 LR IV SOLUTION 1,000 ML IV SCH (23:55)
[2021-05-23] VITALS (69 sets, daily range): BP systolic 86–141; BP diastolic 34–87
[2021-05-23 00:14] LABS: BASOPHILS % (AUTO) 0 % (0-10); EOSINOPHILS % (AUTO) 0 % (0-10); HEMATOCRIT 32 % (35-52); HEMOGLOBIN 9.8 g/dL (11.5-16.0); LYMPHOCYTES # (AUTO) 1.1 10^3/uL (1.0-4.0); LYMPHOCYTES % (AUTO) 10 % (12-44); MEAN CORPUSCULAR HEMOGLOBIN 24 pg (25-34); MEAN CORPUSCULAR HGB CONC 31 g/dL (32-36); MEAN CORPUSCULAR VOLUME 78 fL (80-99); MEAN PLATELET VOLUME 10.4 fL (9.0-12.2); MONOCYTES # (AUTO) 0.6 10^3/uL (0.0-1.0); MONOCYTES % (AUTO) 5 % (0-12); NEUTROPHILS # (AUTO) 9.7 10^3/uL (1.8-7.8); NEUTROPHILS % (AUTO) 84 % (42-75); PLATELET COUNT 224 10^3/uL (130-400); WHITE BLOOD COUNT 11.5 10^3/uL (4.3-11.0)
[2021-05-23] MEDS ORDERED: LACTATED RINGERS 1,000 ML IV ONE (00:15)
[2021-05-23] MEDS ORDERED: fentaNYL 2 mcg/ml BUPIVA 0.125 100 ML ONE ×2 (00:36→08:45)
[2021-05-23] MEDS ORDERED: fentaNYL INJ 100 MCG/2 ML AMP ONE ×2 (01:32→11:47)
[2021-05-23] MEDS ORDERED: LIDOCAINE/EPI 2% 1:200,00 (XYLOCAINE) 10 ML VIAL ONE (03:51)
[2021-05-23] MEDS ORDERED: OXYTOCIN PRE-MIX DRIP 500 ML IV ONE (03:51)
[2021-05-23] MEDS: CATHETER FLUSH 10 ML SYR IV SCH ×6 (06:00→21:16)
[2021-05-23] MEDS ORDERED: OXYTOCIN PRE-MIX DRIP 500 ML IV SCH (06:30)
--- NOTE | 2021-05-23 06:56 | History & Physical-OB ---
OB - Chief Complaint & HPI Date/Time Date of Admission: Date of Admission: May 22, 2021 at 23:36 Date seen by a Provider: May 23, 2021 Time Seen by a Provider: 06:45 Chief Complaint/History OB-Reason for Admission/Chief: Onset of Labor Hx : 1 Hx Para: 0 Expected Date of Delivery: May 29, 2021 Gestational Age in Weeks: 39 Gestational Age in Days: 1 Other reason for admission: Patient presented last night with SROM and 6cm dilatation. Admission Nurse Assessment Rev: Yes History of Labs A pos Antibody neg RI RPR NR HBsAg NR HIV NR GC neg GBS neg Allergies and Home Medications Allergies Coded Allergies: No Known Drug Allergies (Unverified , 07/03/17) Patient Home Medication List Home Medication List Reviewed: Yes Ferrous Gluconate (Iron) 240 Mg Tablet, 240 MG PO, (Reported) Entered as Reported by: NIC WILSON on 05/21/21 0818 Last Action: Reviewed Vit/Iron Fumarate/FA ( Tablet) 1 Each Tablet, 1 EACH PO DAILY, (Reported) Entered as Reported by: ABDULKADIR DOBBS on 03/08/21 4070 Last Action: Reviewed OB - History Hx of Present Care: Yes Ultrasounds: Normal mid trimester US Obstetrical Complications: None Medical Complications: None Delivery History Hx Blood Disorders: Yes (MILD ANEMIA) Adverse Rxn to Tranfusion: No Patient Past Medical History n/a Social History/Family History 2nd Hand Smoke Exposure: No Immunizations Influenza Vaccine Up-to-Date: No; Not Current OB - Admission Exam Physical Exam Vitals: Vital Signs 05/23/21 05/23/21 04:00 05:30 Temp 36.0 Pulse 70 Resp 18 B/P (MAP) 103/70 (81) Pulse Ox 100 O2 Delivery Room Air HEENT: NCAT Heart: Rhythm Normal Lungs: Clear Abdomen: Gravid Extremities: Normal Cervical Dilatation: 6cm Effacement: 100% Station: 0 Membranes: Ruptured Amniotic Fluid: Clear Heart Rate: 130's Accelerations: Accelerations Present Decelerations: Variable Decelerations Short Term Variability: Present Cheese Packer Variability: Average (6-25) Contractions on Admission: 6-10 Minutes Apart Intensity: Firm Labs Laboratory Tests Test 05/22/21 23:50 Range/Units White Blood Count 11.5 H 4.3-11.0 10^3/uL Red Blood Count 4.03 3.80-5.11 10^6/uL Hemoglobin 9.8 L 11.5-16.0 g/dL Hematocrit 32 L 35-52 % Mean Corpuscular Volume 78 L 80-99 fL Mean Corpuscular Hemoglobin 24 L 25-34 pg Mean Corpuscular Hemoglobin Concent 31 L 32-36 g/dL Red Cell Distribution Width 14.4 10.0-14.5 % Platelet Count 224 130-400 10^3/uL Mean Platelet Volume 10.4 9.0-12.2 fL Immature Granulocyte % (Auto) 1 % Neutrophils (%) (Auto) 84 H 42-75 % Lymphocytes (%) (Auto) 10 L 12-44 % Monocytes (%) (Auto) 5 0-12 % Eosinophils (%) (Auto) 0 0-10 % Basophils (%) (Auto) 0 0-10 % Neutrophils # (Auto) 9.7 H 1.8-7.8 10^3/uL Lymphocytes # (Auto) 1.1 1.0-4.0 10^3/uL Monocytes # (Auto) 0.6 0.0-1.0 10^3/uL Eosinophils # (Auto) 0.0 0.0-0.3 10^3/uL Basophils # (Auto) 0.0 0.0-0.1 10^3/uL Immature Granulocyte # (Auto) 0.1 0.0-0.1 10^3/uL OB - Assessment/Plan/Diagnosis Assessment Assessment: active labor Admission Dx 25 y o @ 39 weeks SROM Active labor GBS neg Admission Status: Inpatient Order (span 2 midnights) Reason for Inpatient Admission: Active labor at 39 weeks Plan Plan: Expectant Management LEVON BURDICK DO May 23, 2021 06:56
[2021-05-23] MEDS: D5 LR IV SOLUTION 1,000 ML IV SCH ×4 (07:14→21:17)
[2021-05-23] MEDS ORDERED: METOCLOPRAMIDE INJ 10 MG/2 ML (REGLAN) ONE (11:34)
[2021-05-23] MEDS ORDERED: TERBUTALINE INJ 1 MG/ML (BRETHINE) AMP ONE (11:34)
[2021-05-23] MEDS ORDERED: CITRIC ACID/SOB CIT (BICITRA) 30 ML UDC ONE (11:34)
[2021-05-23] MEDS ORDERED: FAMOTIDINE 20MG/2ML IV (PEPCID) ONE (11:34)
--- NOTE | 2021-05-23 11:47 | Progress Note ---
Standard Progress Note Progress Notes/Assess & Plan Date Seen by a Provider: May 23, 2021 Time Seen by a Provider: 11:30 Progress/Assessment & Plan Patient admitted last night for active labor, progressed to complete and 0 station. She received an epidural and was augmented with a maximum dose of 4 mu Pitocin. She was encouraged to push, no progression was made, repositioned several times and allowed to labor down for one hour, attempted again to push with little to no change in station and a large caput developing. Due to CPD decision was made with the patient to proceed with PLTCS. Risk of procedure and recovery, hospital stay reviewed. All questions answered. LEVON BURDICK DO May 23, 2021 11:47
[2021-05-23] MEDS ORDERED: BUPIVACAINE 0.5% 30 ML (SENSORCAINE) VIAL ONE (11:48)
[2021-05-23] MEDS ORDERED: BUPIVACAINE 0.25% 30 ML (SENSORCAINE) VIAL ONE (11:48)
--- NOTE | 2021-05-23 11:50 | Discharge Inst-Women's Service ---
Discharge Inst-Women's Serv Depart Medication/Instructions New, Converted or Re-Newed RX: Transmitted to Pharmacy Final Diagnosis POD 2 PLTCS Problems Reviewed?: Yes Consults/Follow Up Additional Follow Up: Yes Orders/Referrals Dr. Trinh in 7-10 days and in 6 weeks Activity Activity: Activity as Tolerated Driving Instructions: No Driving for 1 Week NO SMOKING: NO SMOKING Nothing Inside Vagina: No Douching, No [place], No Tampons Diet Discharge Diet: No Restrictions Symptoms to Report to : Bleeding Excessive, Pain Increased, Fever Over 101 Degrees F, Vaginal Bleeding Increase, Questions/Concerns For Any Problems or Questions: Contact Your Physician Skin/Wound Care Infection Signs and Symptoms: Increased Redness, Foul Odor of Wound, Increased Drainage, Skin Itchy or Has a Rash, Increased Swelling, Temperature Above 101 F Operative Area Clean and Dry: Keep Incision Clean/Dry Stitches/[place]/Dermabond: Dermabond, Care of Stitches Bathing Instructions: LEVON Glass DO May 23, 2021 11:50
[2021-05-23] MEDS ORDERED: ceFAZolin INJECTION 1,000 MG VIAL IV ONE (11:55)
[2021-05-23] MEDS ORDERED: TETANUS,DIPTH,PERTUSS P/F (BOOSTRIX) 0.5 ML VIAL IM SCH (12:00)
[2021-05-23] MEDS ORDERED: HYDROmorphone 2 MG/ML VIAL (DILAUDID) IV PRN (12:00)
[2021-05-23] MEDS ORDERED: ONDANSETRON 4 MG/2 ML (SDV) Z0FRAN IVP PRN (12:00)
[2021-05-23] MEDS ORDERED: MEASLES,MUMPS,RUBELLA 1 EA INJ SC SCH (12:00)
[2021-05-23] MEDS ORDERED: NALOXONE 0.4 MG/ML 1 ML (NARCAN) VIAL IV PRN (12:00)
[2021-05-23] MEDS: KETOROLAC 30 MG/ML VIAL IV SCH ×4 (15:13→21:17)
[2021-05-23] MEDS: oxyCODONE/APAP 5/325MG (PERCOCET 5) TABLET PO PRN ×2 (15:45→22:12)
--- NOTE | 2021-05-23 18:27 | OPERATIVE REPORT ---
DATE OF SERVICE: PREOPERATIVE DIAGNOSES: 1. A 25-year-old female at 39 weeks' gestation. 2. Cephalopelvic disproportion. POSTOPERATIVE DIAGNOSES: 1. A 25-year-old female at 39 weeks' gestation. 2. Cephalopelvic disproportion. PROCEDURE: Primary low transverse section. SURGEON: Tong Burdick DO ANESTHESIA: Epidural, which was bolused. ESTIMATED BLOOD LOSS: 500 mL. URINE OUTPUT: 75 mL clear at the end of the procedure. FLUIDS: 1500 mL lactated Ringer's solution. FINDINGS: A live female , weighing 7 pounds 4 ounces, Apgars of 2, 5 and 9. Grossly normal appearing uterus, bilateral fallopian tubes and ovaries. SPECIMEN SENT: Placenta. INDICATIONS FOR PROCEDURE: This 25-year-old female is a patient who was admitted for labor late evening yesterday. She came in with spontaneous rupture of membranes and was milena regularly. She received an epidural, after which her contractions spaced out and her labor was augmented with Pitocin augmentation to a maximum dose of 4 milliunits. She then progressed to complete and was encouraged to push labor down and push again. Over the process of 3 hours, she made little to no progress with a large caput developing on the vertex. Due to suspicion for cephalopelvic disproportion, I discussed with the patient procedure of primary section. Risks of procedure were discussed with the patient in detail including recovery timeframe, risk from anesthesia, hospital stay. After everything was discussed with the patient in detail, consent was obtained in the preoperative area, the patient was taken to the operating room. OPERATIVE REPORT IN DETAIL: Once in the operating room, epidural analgesia was bolused and found to be adequate. She was placed in supine position with leftward tilt, prepped and draped in normal sterile fashion. Timeout was performed and anesthesia was tested to make a Pfannenstiel skin incision with a knife and carried down to underlying fascia using Bovie cautery. Fascial incision extended laterally using Bovie cautery. Superior aspect of fascial incision was then grasped with Abdoulaye clamps, tented upward and dissected off the underlying rectus muscles. The inferior aspect of fascial incision was then grasped with Abdoulaye clamps, tented up and dissected off the underlying rectus muscles. Rectus muscles were dissected down the midline, which exposed the peritoneum, which I entered bluntly and extended using blunt traction. Robin ring retractor was placed in the peritoneal incision, which offers excellent lateral sidewall retraction. I identified the lower uterine segment, which was found to be thinned out and make a low transverse incision to the vesicouterine peritoneum and bluntly dissected off the lower uterine segment, creating a bladder flap. I then proceeded with my myotomy until membranes were visualized, at which point I extended the uterine incision laterally and superiorly using bandage scissors. The was found in the vertex presentation. With gentle fundal pressure, the 's head was elevated up the incision with significant retraction and direction. The head was finally delivered through the incision. Nares and oropharynx were bulb suctioned. Anterior and posterior shoulders were delivered. Infant was then brought to the operative field with cord was duly clamped and cut and was handed off to waiting nurses in attendance. Cord blood was collected. Three-vessel cord with intact placenta was delivered spontaneously thereafter. IV Pitocin was initiated to facilitate uterine contraction. Uterine fundus confirmed by manual massage. Uterus was then exteriorized and cleared of all endometrial clots and debris. I then proceeded with closing the uterine incision using 0 Vicryl suture in running locked fashion. Second layer of imbricating 0 Monocryl was placed. Excellent hemostasis was noted after doing this. I then placed the uterus back within the pelvis and copiously irrigated the pelvis using normal saline. Once again, there was no active bleeding noted from any of my dissection planes. I placed Interceed antiadhesive over my low transverse incision. I removed the Robin ring retractor and then proceeded with closing the peritoneum using 3-0 Vicryl suture in running fashion. The rectus muscles were reapproximated using 3-0 Vicryl suture in interrupted fashion. The fascia was reapproximated using 0 Vicryl suture in running fashion and the skin reapproximated using 4-0 Monocryl running subcuticular. Dermabond was applied to incision and sterile dressing with adhesive white tape. The patient tolerated the procedure well and sent to recovery area in stable condition. Lap and sponge counts were correct at the end of the procedure. Instrument counts were correct as well. One gram of Ancef given preoperatively for infection prophylaxis. Job ID: [id number] DocumentID: [id number] Dictated Date: 05/23/2021 13:29:50 Jv [employer] Date: 05/23/2021 18:26:45 Dictated By: TONG BURDICK DO
[2021-05-23] MEDS: OXYTOCIN PRE-MIX DRIP 500 ML IV SCH ×2 (20:37→20:38)
[2021-05-23] MEDS: DOCUSATE SODIUM 100 MG (COLACE) CAP PO SCH (20:42)
[2021-05-24 01:14] VITALS: BP 107/71
[2021-05-24] MEDS ORDERED: IBUPROFEN 600 MG (MOTRIN) TAB PO ONE ×2 (01:53→08:25)
[2021-05-24] MEDS: oxyCODONE/APAP 5/325MG (PERCOCET 5) TABLET PO PRN ×3 (01:57→19:50)
[2021-05-24] MEDS: IBUPROFEN 600 MG (MOTRIN) TAB PO SCH ×4 (01:57→20:53)
[2021-05-24 05:36] VITALS: BP 117/76
[2021-05-24 06:05] LABS: BASOPHILS # (AUTO) 0.1 10^3/uL (0.0-0.1); BASOPHILS % (AUTO) 0 % (0-10); EOSINOPHILS # (AUTO) 0.1 10^3/uL (0.0-0.3); EOSINOPHILS % (AUTO) 0 % (0-10); HEMATOCRIT 28 % (35-52); HEMOGLOBIN 8.7 g/dL (11.5-16.0); LYMPHOCYTES # (AUTO) 1.4 10^3/uL (1.0-4.0); LYMPHOCYTES % (AUTO) 11 % (12-44); MEAN CORPUSCULAR HEMOGLOBIN 24 pg (25-34); MEAN CORPUSCULAR HGB CONC 31 g/dL (32-36); MEAN CORPUSCULAR VOLUME 77 fL (80-99); MEAN PLATELET VOLUME 10.1 fL (9.0-12.2); MONOCYTES # (AUTO) 0.9 10^3/uL (0.0-1.0); MONOCYTES % (AUTO) 7 % (0-12); NEUTROPHILS # (AUTO) 10.1 10^3/uL (1.8-7.8); NEUTROPHILS % (AUTO) 80 % (42-75); PLATELET COUNT 170 10^3/uL (130-400); WHITE BLOOD COUNT 12.6 10^3/uL (4.3-11.0)
[2021-05-24] MEDS ORDERED: IBUPROFEN 800 MG (MOTRIN) TAB PO ONE (08:23)
[2021-05-24 08:28] VITALS: BP 107/64
[2021-05-24] MEDS: DOCUSATE SODIUM 100 MG (COLACE) CAP PO SCH ×2 (08:30→20:53)
[2021-05-24 12:38] VITALS: BP 116/71
--- NOTE | 2021-05-24 15:08 | Postpartum Progress Note ---
Note Note Day # 1 Subjective: Patient is without complaints. Ambulating, voiding. Tolerating a regular diet without nausea or vomiting. Normal lochia. Pain is well controlled with oral pain medications. Objective: Physical Exam: General - Alert and oriented, no apparent distress Abdomen - Soft, appropriately tender to palpation, non-distended, fundus firm at umbilicus; incision c/d/i Extremities - no edema, negative Michelle's bilaterally Assessment: Post- day # 1, status post PLTCS. Recovering well, hemodynamically stable Acute blood loss anemia Plan: Routine care. Encourage breast feeding. Encourage ambulation. Ferrous sulfate supplementation. Plan for discharge tomorrow Vitals - Labs Vital Signs - I&O Vital Signs Date Time Temp Pulse Resp B/P (MAP) Pulse Ox O2 Delivery O2 Flow Rate FiO2 05/24/21 12:38 36.6 97 16 116/71 (86) 97 Room Air 05/24/21 08:28 36.8 92 16 107/64 (78) 97 Room Air 05/24/21 05:36 36.5 79 16 117/76 (90) 98 05/24/21 01:14 36.0 78 16 107/71 (83) 98 05/23/21 20:48 36.6 88 16 112/76 (88) 97 05/23/21 16:41 Room Air I & O 05/24/21 07:00 Intake Total 1600 ml Output Total 75 ml Balance 1525 ml Labs Laboratory Tests 05/24/21 05:51: White Blood Count 12.6H, Red Blood Count 3.59L, Hemoglobin 8.7L, Hematocrit 28L, Mean Corpuscular Volume 77L, Mean Corpuscular Hemoglobin 24L, Mean Corpuscular Hemoglobin Concent 31L, Red Cell Distribution Width 14.4, Platelet Count 170, Mean Platelet Volume 10.1, Immature Granulocyte % (Auto) 1, Neutrophils (%) (Auto) 80H, Lymphocytes (%) (Auto) 11L, Monocytes (%) (Auto) 7, Eosinophils (%) (Auto) 0, Basophils (%) (Auto) 0, Neutrophils # (Auto) 10.1H, Lymphocytes # (Auto) 1.4, Monocytes # (Auto) 0.9, Eosinophils # (Auto) 0.1, Basophils # (Auto) 0.1, Immature Granulocyte # (Auto) 0.1 PAOLA TAYLOR DICE PERSON May 24, 2021 15:08
--- NOTE | 2021-05-24 15:34 | Anesthesia-Regional Post-Op ---
Regional Patient Condition Mental Status: Alert, Oriented x3 Circulation: Same as Pre-Op Headache: Absent Sensation: Full Recovery Motor Block: Absent Post Op Complications Complications None Follow Up Care/Instructions Patient Instructions None needed. Anesthesia/Patient Condition Patient is doing well, no complaints, stable vital signs, no apparent adverse anesthesia problems. GAGE SERNA DO May 24, 2021 15:33
[2021-05-24 18:15] VITALS: BP 118/77
[2021-05-24 19:50] VITALS: BP 123/85
[2021-05-25 02:45] VITALS: BP 121/75
[2021-05-25] MEDS: IBUPROFEN 600 MG (MOTRIN) TAB PO SCH ×3 (02:46→15:14)
[2021-05-25 08:00] VITALS: BP 113/66
[2021-05-25] MEDS: DOCUSATE SODIUM 100 MG (COLACE) CAP PO SCH (08:08)
--- NOTE | 2021-05-25 08:58 | Postpartum Progress Note ---
Note Note Day # 2 Subjective: Patient is without complaints. Ambulating, voiding. Tolerating a regular diet without nausea or vomiting. Normal lochia. Pain is well controlled with oral pain medications. Objective: Physical Exam: General - Alert and oriented, no apparent distress Abdomen - Soft, appropriately tender to palpation, non-distended, fundus firm at umbilicus Extremities - no edema, negative Michelle's bilaterally Incision- c/d/i Assessment: POD 2 PLTCS Acute blood loss anemia Plan: Routine care. Encourage breast feeding. Encourage ambulation. Ferrous sulfate supplementation. Plan for discharge today Vitals - Labs Vital Signs - I&O Vital Signs Date Time Temp Pulse Resp B/P (MAP) Pulse Ox O2 Delivery O2 Flow Rate FiO2 05/25/21 08:00 36.7 73 18 113/66 (82) 99 Room Air 05/25/21 02:46 36.4 05/25/21 02:45 36.4 69 18 121/75 (90) 98 Room Air 05/24/21 19:50 36.6 80 18 123/85 (98) 98 Room Air 05/24/21 18:15 36.5 78 18 118/77 (91) 98 Room Air 05/24/21 12:38 36.6 97 16 116/71 (86) 97 Room Air LEVON BURDICK DO May 25, 2021 08:58
[2021-05-25] MEDS ORDERED: OXYC1TAB87 PO (08:59)
[2021-05-25] MEDS ORDERED: IBUP-844 PO (08:59)
[2021-05-25] MEDS ORDERED: DOCU100C37 PO (08:59)
[2021-05-25 12:00] VITALS: BP 123/70
[2021-05-25 18:00] VITALS: BP 122/66
[2021-05-25 18:30] VITALS: BP 122/66
== END 2021-05-25 18:30 | disposition home or self-care (01) | DRG 787 ==
LOC: WSo 23:20 → LDRP 23:21 → WSo 23:36 → LDRP 05-23 00:14
PROVIDERS: ADMIT Obstetrics & Gynecology; ATTEND Obstetrics & Gynecology
PROC: 10D00Z1 Extraction of Products of Conception, Low, Open Approach (ICD-10-PCS; principal; 2021-05-23 11:57)
DX: O33.9 Maternal care for disproportion, unspecified (principal); D62 Acute posthemorrhagic anemia; Z3A.39 39 weeks gestation of pregnancy; Z37.0 Single live birth; O90.81 Anemia of the puerperium
CPT/HCPCS: 36415; 85025; 86850; 86900; 86901; 94010; 99212